=== PATIENT | female | born 1955 | race Caucasian/White ===

== ENCOUNTER 2021-08-10 03:01 | Emergency (ER) | payer MEDICARE ==
--- NOTE | 2021-08-10 03:09 | ERPHSYRPT ---
- History of Present Illness Time Seen by Provider: 08/10/21 03:09 Source: patient Exam Limitations: no limitations Physician History: This is a morbidly obese white female patient who presents with left flank pain that began yesterday morning at 10am. it was described as more of an ache. however, at approx 2am today, the pain suddenly worsened. she was tx for uti approx 3 months ago and pain is similar. pt has a h/o copd. pt does not have sig abd pain. she denies cp and her chronic sob is not different Timing/Duration: yesterday Activites at Onset: none Quality: aching, sharpness Onset Location: left flank Pain Radiation: none Severity of Pain-Max: moderate Severity of Pain-Current: moderate Sexual intercourse history: non-contributory Modifying Factors: Improves With: nothing Associated Symptoms: denies symptoms, No dysuria, No urinary frequency Allergies/Adverse Reactions: No Known Drug Allergies Allergy (Unverified 08/10/21 03:22) Home Medications: Albuterol 2.5 mg/3 ml Neb [Proventil 2.5 mg/3 ml Neb] 1 neb IH QID 08/10/21 [History] Travel Risk - International Travel Have you traveled outside of the country in past 3 weeks: No - Coronavirus Screening Are you exhibiting any of the following symptoms?: No Close contact with a COVID-19 positive Pt in past 14-21 Days: No - Review of Systems Constitutional: No Symptoms Eyes: No Symptoms Ears, Nose, & Throat: No Symptoms Respiratory: No Symptoms Cardiac: No Symptoms Genitourinary Symptoms: Flank Pain (left) Musculoskeletal: No Symptoms Skin: No Symptoms Neurological: No Symptoms Psychological: No Symptoms Endocrine: No Symptoms Hematologic/Lymphatic: No Symptoms Immunological/Allergic: No Symptoms All Other Systems: Reviewed and Negative - Past Medical History Pertinent Past Medical History: Yes - Past Surgical History Past Surgical History: Yes - Nursing Vital Signs Nursing Vital Signs: Initial Vital Signs Temperature 97.6 F 08/10/21 03:02 Pulse Rate 70 08/10/21 03:02 Respiratory Rate 24 08/10/21 03:02 Blood Pressure 222/109 08/10/21 03:02 O2 Sat by Pulse Oximetry 96 08/10/21 03:02 Pain Scale Pain Intensity 4 - Physical Exam General Appearance: mild distress, alert, anxiety, obese Eye Exam: PERRL/EOMI, eyes nml inspection Ears, Nose, Throat Exam: normal ENT inspection, moist mucous membranes Neck Exam: normal inspection, non-tender, supple, full range of motion Respiratory Exam: normal breath sounds, lungs clear, airway intact, No chest tenderness, No respiratory distress Cardiovascular Exam: regular rate/rhythm, normal heart sounds, normal peripheral pulses Gastrointestinal/Abdomen Exam: soft, normal bowel sounds, No tenderness Pelvic Exam: not done Rectal Exam: not done Back Exam: normal inspection, normal range of motion, CVA tenderness (left), No vertebral tenderness Extremity Exam: normal inspection, normal range of motion, pelvis stable Neurologic Exam: alert, oriented x 3, cooperative, 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 tested, normal mood/affect, nml cerebellar function, nml station & gait, sensation nml Skin Exam: normal color, warm, dry Lymphatic Exam: No adenopathy SpO2 Interpretation: normal O2 Delivery: Room Air - Course Nursing assessment & vital signs reviewed: Yes Ordered Tests: Active Orders 24 hr Category Date Time Status ABDOMEN AND PELVIS W/0 CONTRAS [CT] Stat Exams 08/10/21 03:32 Taken UA W/RFX CULTURE Stat Lab 08/10/21 03:15 Completed Medication Summary Discontinued Medications Generic Name Dose Route Start Last Admin Trade Name Tammie PRN Reason Stop Dose Admin Hydromorphone HCl 1 mg 08/10/21 03:31 08/10/21 03:38 Hydromorphone 1 Mg/1ml Inj 1 Mg/Ml Syringe IM 08/10/21 03:32 1 mg STAT ONE Administration Hydromorphone HCl Confirm 08/10/21 03:37 Hydromorphone 1 Mg/1ml Inj 1 Mg/Ml Syringe Administered 08/10/21 03:38 Dose 1 mg .ROUTE .STK-MED ONE Ondansetron HCl 4 mg 08/10/21 03:31 08/10/21 03:38 Zofran 4 Mg/Udtablet Orally Disintegrating PO 08/10/21 03:32 4 mg STAT ONE Administration Ondansetron HCl Confirm 08/10/21 03:37 Zofran 4 Mg/Udtablet Orally Disintegrating Administered 08/10/21 03:38 Dose 4 mg .ROUTE .STK-MED ONE Lab/Rad Data: Laboratory Results 08/10/21 Range/Units 03:15 Urinalys Dipstick Clnc MAIN LAB Urine Color YELLOW (YELLOW) Urine Appearance CLEAR (CLEAR) Urine pH 6.0 (5-6) Ur Specific [place] >=1.030 (1.005-1.025) POC Urine Protein Conf NEGATIVE (Negative) Urine Ketones NEGATIVE (NEGATIVE) Urine Nitrite NEGATIVE (NEGATIVE) Urine Bilirubin NEGATIVE (NEGATIVE) Urine Urobilinogen 0.2 (0-1) mg/dL Urine Leukocytes NEGATIVE (NEGATIVE) Urine WBC (Auto) 3-5 (0-5) /HPF Urine RBC (Auto) NONE (0-2) /HPF U Epithel Cells (Auto) RARE (FEW) /HPF Urine Bacteria (Auto) NONE (NEGATIVE) /HPF Urine RBC NEGATIVE (0-5) Leif/ul Urine Mucus (Auto) SLIGHT (NEGATIVE) /HPF Ur Culture Indicated? NO Urine Glucose NEGATIVE (NEGATIVE) mg/dL - Departure Departure Disposition: Home Clinical Impression: Lumbar back pain Condition: Stable Critical Care Time: No Additional Instructions: Take medications as prescribed. follow up with primary doctor for further management Prescriptions: Hydrocodone/APAP 5/325 [[place] 5/325 mg] 1 each PO Q8H PRN PRN #6 tablet MDD 3 PRN Reason: Pain Prednisone 10 mg [Deltasone 10 mg] 10 mg PO TID #12 tablet
[2021-08-10 03:19] LABS: Appearance CLEAR (CLEAR); Bilirubin NEGATIVE (NEGATIVE); Dipstick done @ ? MAIN LAB; Glucose NEGATIVE (NEGATIVE); Ketones NEGATIVE (NEGATIVE); Nitrite NEGATIVE (NEGATIVE); Protein,Urine Dip NEGATIVE (Negative); RBC NEGATIVE Ery/ul (0-5); Specific Gravity >=1.030 (1.005-1.025); Urobilinogen 0.2 mg/dL (0-1)
[2021-08-10 03:23] LABS: Epithelial Cells RARE /HPF (FEW); Mucus SLIGHT /HPF (NEGATIVE)
[2021-08-10 03:24] LABS: Urine Cultured Indicated? NO
[2021-08-10] MEDS ORDERED: Hydromorphone 1 mg/ml Injection IM ONE (03:31)
[2021-08-10] MEDS ORDERED: ZOFRAN ODT 4 MG PO ONE (03:31)
[2021-08-10] MEDS ORDERED: ZOFRAN ODT 4 MG ONE (03:37)
[2021-08-10] MEDS ORDERED: Hydromorphone 1 mg/ml Injection ONE (03:37)
[2021-08-10] MEDS ORDERED: DELTASONE 20 MG PO ONE (05:34)
[2021-08-10] MEDS ORDERED: DELTASONE 20 MG ONE (05:35)
[2021-08-10 05:39] VITALS: BP 170/91; PULSE 71; O2SAT 95
--- NOTE | 2021-08-10 09:10 | XRAY ---
Indication: Left flank pain. Multiple contiguous axial images obtained through the abdomen and pelvis without contrast. Comparison: None Lung bases demonstrates tiny left lower lobe calcified granuloma. No infiltrate or effusion. Heart not enlarged. Noncontrasted stomach and bowel loops appear nonobstructed with normal appendix. Minimal scattered descending and sigmoid diverticulosis without diverticulitis. Previous hysterectomy. No free fluid/air. Left kidney demonstrates 2 nonobstructing punctate calculi. Mild diffuse fatty liver. Remaining liver, gallbladder, pancreas, spleen, adrenal glands, kidneys, ureters, and bladder are unremarkable for noncontrast exam. Minimal scattered aortoiliac calcifications without AAA. Osseous structures intact with mild osteopenia, minimal/mild degenerative changes throughout the spine, and minimal dextroscoliosis. Impression: 1. Nonobstructing left renal micro-calculi, fatty liver, colonic diverticulosis, and chronic bony findings. 2. Remaining CT abdomen/pelvis without contrast exam is negative.
== END 2021-08-10 05:43 | disposition home or self-care (01) ==
LOC: ED 03:01
DX: M54.50 Low back pain, unspecified (principal); R10.9 Unspecified abdominal pain; J44.9 Chronic obstructive pulmonary disease, unspecified; Z79.891 Long term (current) use of opiate analgesic; Z79.52 Long term (current) use of systemic steroids
CPT/HCPCS: 74176; 81015; 96372; 99284; J1170; Q0162; A9270-GY

== ENCOUNTER 2022-11-28 19:20 | Observation (INO) | payer MEDICARE ==
[2022-11-28] MEDS ORDERED: TORAdol 30 mg Injection IV ONE (19:49)
[2022-11-28] MEDS ORDERED: TYLENOL 325 MG ONE (19:52)
[2022-11-28] MEDS ORDERED: TORAdol 30 mg Injection ONE (19:52)
[2022-11-28] MEDS ORDERED: TYLENOL 325 MG PO STA (19:53)
[2022-11-28] MEDS: Sodium Chloride 0.9% 1000 ML 1,000 ML IV SCH (19:54)
[2022-11-28 20:11] LABS: Hematocrit 43.6 % (35-47); Hemoglobin 14.2 g/dL (12.0-16.0); Mean Cell Volume 86.3 fL (78-100); Mean Corpuscular Hemoglobin 28.1 pg (26-32); Mean Corpuscular Hgb Concent. 32.6 g/dL (32-36); Mean Platelet Volume 10.3 fL (7.5-11.0); Platelet Count 154 x10^3/uL (150-450); Red Blood Count 5.05 x10^6/uL (4.1-5.4); Red Cell Distribution Width 14.2 % (11.5-14.0); White Blood Count 9.2 x10^3/uL (4.0-10.5)
[2022-11-28 20:28] LABS: ADD URINE CULTURE? YES (NO); Appearance Turbid (Clear); Bacteria Many /HPF (None Seen); Bilirubin Small (Negative); Blood Moderate (Negative); Epithelial Cells Rare /HPF (None Seen); Glucose, Urine Negative (Negative); Ketones Negative (Negative); Leukocyte Esterase Large (Negative); Nitrite Positive (Negative); Protein,Urine Dip 300 (Negative); RBC 21-50 /HPF (0-5); Specific Gravity 1.015 (1.005-1.030); WBC >100 /HPF (0-5)
[2022-11-28 20:30] LABS: BILIRUBIN,TOTAL 1.7 mg/dL (0.2-1.3); Calcium 8.7 mg/dL (8.4-10.2); Creatinine 1 1.03 mg/dL (0.52-1.04); EST GLOMERULAR FILTRATION RATE 56.6 ML/MIN; Potassium 3.7 mmol/L (3.5-5.1); Total Protein 7.1 g/dL (6.3-8.2)
[2022-11-28] MEDS ORDERED: ROCEPHIN 1 Gm-D5w 50 ml Bag** 1 G/50 ML IVPB IV STA (21:23)
[2022-11-28] MEDS ORDERED: ROCEPHIN 1 Gm-D5w 50 ml Bag** 1 G/50 ML IVPB IV ONE (21:25)
--- NOTE | 2022-11-28 21:32 | ERPHSYRPT ---
- History of Present Illness Time Seen by Provider: 11/28/22 19:45 Source: patient Exam Limitations: no limitations Patient Subjective Stated Complaint: pt reports that on 11/25/22 she woke up with a headache and nausea that persisted unchanged until last night when she vomited once that she states was water and medication. she reports that this morning she vomited water again and started having bilat lower abd pain that is intermittent, rated 9/10, and described as throbbing. she continues to have a frontal BOYLE that is also on the top of her head. states that she continues to be nauseated but hasn't thrown up again since this morning. Triage Nursing Assessment: pt brought to room 8 via wheelchair after standing on scales for weight acquisition and to bathroom for urine sample independently with slow steady gait. pt is alert and oriented times three, resp even and unlabored, able to move all extremities, and able to speak in complete se ntences. abd soft, tender to palpation in bilat lower quadrants, obese, with positive bowel sounds in all quadrants. denies sob, difficulty breathing, cp, vomiting, diarrhea, difficulty with urination or bowel elimination. states that she has been extremely thristy all day. denies having taken her temperature but has felt like she had a fever. Physician History: Patient is a 67-year-old female presents to our ED for evaluation of nausea and a headache. Patient's been experiencing cold chills at night. Patient vomited yesterday. Patient has suprapubic tenderness rated 9 out of 10. No trauma no fever no significant back pain. Symptoms are mild to moderate in intensity. No specific worsening improving factors. Patient headache is mostly frontal. No associated neurologic manifestations. Patient voices no other complaints or concerns at this time. Portions of this note were created with voice recognition technology. There may be grammatical, spelling, punctuation or sound alike errors Timing/Duration: yesterday Severity: moderate Modifying Factors: Improves With: nothing Associated Symptoms: denies symptoms Allergies/Adverse Reactions: No Known Drug Allergies Allergy (Verified 11/28/22 19:30) Home Medications: Albuterol 2.5 mg/3 ml Neb [Proventil 2.5 mg/3 ml Neb] 1 neb IH QID 07/16 11/04 [History] Tamsulosin HCl 0.4 mg [Flomax 0.4 MG] 0.4 mg PO DAILY 11/15/21 [History] Famotidine [Pepcid] 20 mg PO DAILY 11/28/22 [History] Naproxen Sodium [Aleve] 220 mg PO DAILY PRN 11/28/22 [History] Hx Tetanus, Diphtheria Vaccination/Date Given: No Hx Influenza Vaccination/Date Given: No Hx Pneumococcal Vaccination/Date Given: No Immunizations Up to Date: No Travel Risk - International Travel Have you traveled outside of the country in past 3 weeks: No - Coronavirus Screening Are you exhibiting any of the following symptoms?: No Close contact with a COVID-19 positive Pt in past 14-21 Days: No - Vaccine Status Have you recieved a Covid-19 vaccination: Yes Sec Reporting Consultant: Moderna - Vaccination Dates Date of 2cond Vaccination (if applicable): 06/23/20 - Review of Systems Constitutional: No Symptoms, No Fever, No Chills Eyes: No Symptoms Ears, Nose, & Throat: No Symptoms Respiratory: No Symptoms, No Cough, No Dyspnea Cardiac: No Symptoms, No Chest Pain, No Edema, No Syncope Abdominal/Gastrointestinal: No Symptoms, No Abdominal Pain, No Nausea, No Vomiting, No Diarrhea Genitourinary Symptoms: No Symptoms, No Dysuria Musculoskeletal: No Symptoms, No Back Pain, No Neck Pain Skin: No Symptoms, No Rash Neurological: No Symptoms, No Dizziness, No Focal Weakness, No Sensory Changes Psychological: No Symptoms Endocrine: No Symptoms Hematologic/Lymphatic: No Symptoms Immunological/Allergic: No Symptoms All Other Systems: Reviewed and Negative - Past Medical History Pertinent Past Medical History: Yes Neurological History: No Pertinent History ENT History: No Pertinent History Cardiac History: Hypertension Respiratory History: COPD Endocrine Medical History: No Pertinent History Musculoskeletal History: No Pertinent History GI Medical History: No Pertinent History History: No Pertinent History Psycho-Social History: No Pertinent History Female Reproductive Disorders: Uterine Cancer Other Medical History: kidney stones - Past Surgical History Past Surgical History: Yes Neuro Surgical History: No Pertinent History Cardiac: No Pertinent History Respiratory: No Pertinent History Gastrointestinal: No Pertinent History Genitourinary: No Pertinent History Musculoskeletal: No Pertinent History Female Surgical History: Hysterectomy - Social History Smoking Status: Former smoker How long have you smoked: age 15 Exposure to second hand smoke: Yes Drug Use: none Patient Lives Alone: No - Nursing Vital Signs Nursing Vital Signs: Initial Vital Signs Pulse Rate 95 H 11/28/22 19:33 Respiratory Rate 20 11/28/22 19:33 Blood Pressure 195/86 11/28/22 19:33 O2 Sat by Pulse Oximetry 96 11/28/22 19:33 Pain Scale Pain Intensity 9 - Physical Exam General Appearance: no apparent distress, alert Eye Exam: PERRL/EOMI, eyes nml inspection Ears, Nose, Throat Exam: normal ENT inspection, TMs normal, pharynx normal, moist mucous membranes Neck Exam: normal inspection, non-tender, supple, full range of motion Respiratory Exam: normal breath sounds, lungs clear, airway intact, No respiratory distress Cardiovascular Exam: regular rate/rhythm, normal heart sounds, normal peripheral pulses Gastrointestinal/Abdomen Exam: soft, normal bowel sounds, other (Significant sup rapubic tenderness. Left-sided costovertebral angle tenderness), No tenderness, No mass Back Exam: normal inspection, normal range of motion, No CVA tenderness, No vertebral tenderness Extremity Exam: normal inspection, normal range of motion, pelvis stable Neurologic Exam: alert, oriented x 3, cooperative, normal mood/affect, nml cerebellar function, nml station & gait, sensation nml, No motor deficits Skin Exam: normal color, warm, dry, No rash Lymphatic Exam: No adenopathy SpO2 Interpretation: normal SpO2: 96 O2 Delivery: Room Air - Course Nursing assessment & vital signs reviewed: Yes - CT Exams Abdomen/Pelvis CT Interpretation: Tele-radiologist Report (Compared to 08/10/2021 again nonobs tructing bilateral renal micro calculi fatty liver colonic diverticulosis. No new acute findings) Ordered Tests: Active Orders 24 hr Category Date Time Status IV Insertion STAT Care 11/28/22 19:49 Active ABDOMEN AND PELVIS W/0 CONTRAS [CT] Stat Exams 11/28/22 19:49 Taken BLOOD CULTURE Stat Lab 11/28/22 20:45 Received CBC W DIFF Stat Lab 11/28/22 20:06 Completed CMP Stat Lab 11/28/22 20:06 Completed CULTURE,URINE Stat Lab 11/28/22 19:49 Received Manual Differential NC Stat Lab 11/28/22 20:06 Completed UA W/RFX UR CULTURE Stat Lab 11/28/22 19:49 Completed Transfer Order Routine Transfer 11/28/22 Ordered Medication Summary Generic Name Dose Route Start Last Admin Trade Name Freq PRN Reason Stop Dose Admin Sodium Chloride 1,000 mls @ 100 mls/hr 11/28/22 20:00 11/28/22 19:54 Sodium Chloride 0.9% 1000 Ml IV 12/28/22 19:59 100 mls/hr .Q10H KRISTIN Administration Discontinued Medications Generic Name Dose Route Start Last Admin Trade Name Tammie PRN Reason Stop Dose Admin Acetaminophen 975 mg 11/28/22 19:53 11/28/22 19:54 Acetaminophen 325 Mg Tablet PO 11/28/22 19:54 975 mg STAT STA Administration Acetaminophen Confirm 11/28/22 19:52 Acetaminophen 325 Mg Tablet Administered 11/28/22 19:53 Dose 975 mg .ROUTE .STK-MED ONE Ceftriaxone Sodium/Dextrose 1 g in 50 mls @ 100 mls/hr 11/28/22 21:23 11/28/22 21:27 Rocephin 1 Gm-D5w 50 Ml Bag IV 11/28/22 21:52 100 mls/hr STAT STA 100 mls/hr Administration Ceftriaxone Sodium/Dextrose Confirm 11/28/22 21:25 Rocephin 1 Gm-D5w 50 Ml Bag Administered 11/28/22 21:26 Dose 1 g in 50 mls @ ud IV .STK-MED ONE Ketorolac Tromethamine 30 mg 11/28/22 19:49 11/28/22 19:54 Ketorolac Tromethamine 30 Mg/Ml Inj IV 11/28/22 19:50 30 mg STAT ONE Administration Ketorolac Tromethamine Confirm 11/28/22 19:52 Ketorolac Tromethamine 30 Mg/Ml Inj Administered 11/28/22 19:53 Dose 30 mg .ROUTE .STK-MED ONE Lab/Rad Data: Laboratory Result Diagrams 11/28/22 20:06 11/28/22 20:06 Laboratory Results 11/28/22 11/28/22 11/28/22 Range/Units 20:06 20:06 19:49 WBC 9.2 (4.0-10.5) x10^3/uL RBC 5.05 (4.1-5.4) x10^6/uL Hgb 14.2 (12.0-16.0) g/dL Hct 43.6 (35-47) % MCV 86.3 (78-100) fL MCH 28.1 (26-32) pg MCHC 32.6 (32-36) g/dL RDW 14.2 H (11.5-14.0) % Plt Count 154 (150-450) x10^3/uL MPV 10.3 (7.5-11.0) fL Segmented Neutrophils 89 H (36.0-66.0) % Lymphocytes (Manual) 5 L (24-44) % Monocytes (Manual) 6 (0.0-12.0) % Platelet Estimate NORMAL (NORMAL) RBC Morphology NORMAL Sodium 133 L (137-145) mmol/L Potassium 3.7 (3.5-5.1) mmol/L Chloride 102 (98-107) mmol/L Carbon Dioxide 21 L (22-30) mmol/L Anion Gap 14.0 (5-15) MEQ/L BUN 21 H (7-17) mg/dL Creatinine 1.03 (0.52-1.04) mg/dL Estimated GFR 56.6 ML/MIN Glucose 151 H (74-106) mg/dL Calcium 8.7 (8.4-10.2) mg/dL Total Bilirubin 1.70 H (0.2-1.3) mg/dL AST 67 H (14-36) U/L ALT 49 H (0-35) U/L Alkaline Phosphatase 156 H (38-126) U/L Serum Total Protein 7.1 (6.3-8.2) g/dL Albumin 4.0 (3.5-5.0) g/dL Urine Color Dark Yellow A (Yellow) Urine Appearance Turbid A (Clear) Urine pH 6.0 (4.6-8.0) Ur Specific [place] 1.015 (1.005-1.030) Urine Protein 300 A (Negative) Urine Glucose (UA) Negative (Negative) mg/dL Urine Ketones Negative (Negative) Urine Blood Moderate A (Negative) Urine Nitrite Positive A (Negative) Urine Bilirubin Small A (Negative) Urine Urobilinogen 2.0 A (0.2) mg/dL Ur Leukocyte Esterase Large A (Negative) U Hyaline Cast (Auto) 3-5 A (0-2) /LPF Urine Microscopic RBC 21-50 A (0-5) /HPF Urine Microscopic WBC >100 A (0-5) /HPF Ur Epithelial Cells Rare (None Seen) /HPF Urine Bacteria Many A (None Seen) /HPF Urine Culture Reflexed YES (NO) - Progress Progress: improved Progress Note: Patient 67-year-old female presents to our ED for evaluation of fever and suprapubic pain. Tenderness to the suprapubic area observed on physical exam. Mild left CV a tenderness. CT abdomen pelvis testing unremarkable. CBC unrem arkable. CMP nonremarkable. Urinalysis reveals a significant urinary tract infection. In light of this systemic manifestation coupled with a significant urinary tract infection patient will be admitted for pyelonephritis. Patient received Toradol Tylenol Rocephin and normal saline. Plan of care discussed with patient. She agrees to admission [facility]. Discussed with hospitalist Dr. Talamantes 10:05 PM who excepts admission to observation. Complexity of problems addressed is moderate acute complicated Complexity of data reviewed is extensive. Test ordered for test reviewed. Clinical correlation made between findings and history and physical examination. Plan of care and management discussed with Follows to except admission to observation. Risk of complication and or risk morbidity/mortality of patient management is high. Patient requires hospitalization for further evaluation and treatment of pyelonephritis Plan of care discussed with patient. She agrees to admission [facility] for further evaluation and treatment. Vital stable. Plan of care established for shared decision making. Time spent admit patient approximately 15 minutes. Portions of this note were created with voice recognition technology. There may be grammatical, spelling, punctuation or sound alike errors 11/28/22 22:27 Counseled pt/family regarding: lab results, diagnosis, need for follow-up, rad results - Departure Departure Disposition: Home Clinical Impression: Urinary tract infection, Nephrolithiasis, Fatty liver, Diverticulosis Condition: Stable Critical Care Time: No Referrals: DOCTOR,NO FAMILY [Primary Care Provider] - Follow up/PCP as directed Additional Instructions: Discharge/Care Plan [facility] was seen on 11/28/22 in the Emergency Room. The patient was counseled regarding Diagnosis,Lab results, Imaging studies, need for follow up and when to return to the Emergency Room. Prescriptions given: Discharge Note I have spoken with the patient and/or caregivers. I have explained the patient's condition, diagnosis and treatment plan based on the information available to me at this time. I have answered the patient's and/or caregiver's questions and addressed any concerns. The patient and/or caregivers have as good understanding of the patient's diagnosis, condition and treatment plan as can be expected at this point. The vital signs have been stable. The patient's condition is stable and appropriate for discharge from the emergency department. The patient will pursue further outpatient evaluation with the primary care physician or other designated or consulting physician as outlined in the dis charge instructions. The patient and/or caregivers are agreeable to this plan of care and follow-up instructions have been explained in detail. The patient and/or caregivers have received these instruction. The patient/and or caregivers are aware that any significant change in condition or worsening of symptoms should prompt an immediate return to this or the closest emergency department or call 911.
[2022-11-28 21:58] LABS: Lymphocytes 5 % (24-44); Monocyte 6 % (0.0-12.0); Neutrophils 89 % (36.0-66.0); Platelet Estimate NORMAL (NORMAL); Total Cells Counted 100
[2022-11-29] MEDS ORDERED: MILK OF MAGNESIA 30 ML PO PRN (02:03)
[2022-11-29] MEDS ORDERED: FEVERALL 650 MG PR PRN (02:03)
[2022-11-29] MEDS ORDERED: Docusate Sodium 100 MG PO PRN (02:03)
--- NOTE | 2022-11-29 02:11 | PCM.HP ---
History of Present Illness - Chief Complaint Chief Complaint: Pyelonephritis Date: 11/29/22 History of Present Illness: This is a 67-year-old female admitted for pyelonephritis. She has past medical history of COPD, uterine cancer. She presented to the ED this evening for evaluation of abdominal pain and headache. On arrival she was febrile 102, heart rate 95, blood pressure 195/86. Labs are significant for WBC 9.2, hemoglobin 14, platelets 154, sodium 133, serum bicarb 21, creatinine 1.0, T. bili 1.7, AST 67, ALT 49, alk phos 156, UA with large leukocyte esterase, blood, nitrite, WBCs, many bacteria. CT abdomen pelvis was obtained official read is still pending but overnight read negative for acute abnormalities. In the ED she received Tylenol, ceftriaxone, Toradol, IV fluids. - Review of Systems Eyes: No Symptoms Ears, Nose, & Throat: No Symptoms Respiratory: No Symptoms Cardiac: No Symptoms Abdominal/Gastrointestinal: Nausea, Vomiting Genitourinary Symptoms: Frequency Musculoskeletal: Back Pain Skin: No Symptoms Neurological: Headache Psychological: No Symptoms Endocrine: No Symptoms Medications & Allergies Home Medications: Home Medication List Albuterol 2.5 mg/3 ml Neb [Proventil 2.5 mg/3 ml Neb] 1 neb IH QID 08/10/21 [History Confirmed 11/28/22] Famotidine [Pepcid] 20 mg PO DAILY 11/28/22 [History Confirmed 11/28/22] Fluticasone/Umeclidin/Vilanter [Trelegy Ellipta 100-62.5-25] 1 inh PO DAILY 11/28/22 [History Confirmed 11/28/22] Naproxen Sodium [Aleve] 220 mg PO DAILY PRN 11/28/22 [History Confirmed 11/28/22] Allergies/Adverse Reactions: Allergies Allergy/AdvReac Type Severity Reaction Status Date / Time No Known Drug Allergies Allergy Verified 11/28/22 19:30 - Past Medical History Past Medical History: Yes Neurological History: No Pertinent History ENT History: No Pertinent History Cardiac History: Hypertension Respiratory History: COPD Endocrine Medical History: No Pertinent History Musculoskelatal History: Osteoarthritis GI Medical History: No Pertinent History History: No Pertinent History Pyscho-Social History: No Pertinent History Reproductive Disorders: Uterine Cancer Comment: kidney stones - Female History Are you now?: No - Past Surgical History Past Surgical History: Yes Neuro Surgical History: No Pertinent History Cardiac History: No Pertinent History Respiratory Surgery: No Pertinent History GI Surgical History: No Pertinent History Genitourinary Surgical Hx: No Pertinent History Musculskeletal Surgical Hx: No Pertinent History Female Surgical History: Hysterectomy - Social History Smoking Status: Former smoker How long have you smoked: age 15 Exposure to second hand smoke: Yes Alcohol: Rarely Drug Use: none - Physical Exam Vital Signs: Vital Signs - 24 hr Temp Pulse Resp BP BP Pulse Ox 11/28/22 23:56 98 11/28/22 23:54 74 18 98 11/28/22 23:03 98.6 F 77 28 H 144/65 94 L 11/28/22 22:30 96 11/28/22 22:30 88 175/111 96 11/28/22 22:00 173/81 96 11/28/22 21:30 151/78 95 11/28/22 21:00 83 18 155/70 96 11/28/22 20:30 79 20 131/57 95 11/28/22 20:00 81 18 128/106 96 11/28/22 19:55 94 H 18 178/91 97 11/28/22 19:35 102 F 95 H 20 195/86 98 11/28/22 19:33 95 H 20 195/86 96 General Appearance: no apparent distress Neurologic Exam: alert, oriented x 3 Eye Exam: PERRL/EOMI Ears, Nose, Throat Exam: normal ENT inspection Neck Exam: normal inspection Respiratory Exam: normal breath sounds Cardiovascular Exam: regular rate/rhythm Gastrointestinal/Abdomen Exam: soft, normal bowel sounds Back Exam: normal inspection Extremity Exam: normal inspection Skin Exam: normal color Results - Labs Lab/Micro Results: Lab Results-Last 24 Hours 11/28/22 11/28/22 11/28/22 Range/Units 19:49 20:06 20:06 WBC 9.2 (4.0-10.5) x10^3/uL RBC 5.05 (4.1-5.4) x10^6/uL Hgb 14.2 (12.0-16.0) g/dL Hct 43.6 (35-47) % MCV 86.3 (78-100) fL MCH 28.1 (26-32) pg MCHC 32.6 (32-36) g/dL RDW 14.2 H (11.5-14.0) % Plt Count 154 (150-450) x10^3/uL MPV 10.3 (7.5-11.0) fL Segmented Neutrophils 89 H (36.0-66.0) % Lymphocytes (Manual) 5 L (24-44) % Monocytes (Manual) 6 (0.0-12.0) % Platelet Estimate NORMAL (NORMAL) RBC Morphology NORMAL Sodium 133 L (137-145) mmol/L Potassium 3.7 (3.5-5.1) mmol/L Chloride 102 (98-107) mmol/L Carbon Dioxide 21 L (22-30) mmol/L Anion Gap 14.0 (5-15) MEQ/L BUN 21 H (7-17) mg/dL Creatinine 1.03 (0.52-1.04) mg/dL Estimated GFR 56.6 ML/MIN Glucose 151 H (74-106) mg/dL Calcium 8.7 (8.4-10.2) mg/dL Total Bilirubin 1.70 H (0.2-1.3) mg/dL AST 67 H (14-36) U/L ALT 49 H (0-35) U/L Alkaline Phosphatase 156 H (38-126) U/L Serum Total Protein 7.1 (6.3-8.2) g/dL Albumin 4.0 (3.5-5.0) g/dL Urine Color Dark Yellow A (Yellow) Urine Appearance Turbid A (Clear) Urine pH 6.0 (4.6-8.0) Ur Specific [place] 1.015 (1.005-1.030) Urine Protein 300 A (Negative) Urine Glucose (UA) Negative (Negative) mg/dL Urine Ketones Negative (Negative) Urine Blood Moderate A (Negative) Urine Nitrite Positive A (Negative) Urine Bilirubin Small A (Negative) Urine Urobilinogen 2.0 A (0.2) mg/dL Ur Leukocyte Esterase Large A (Negative) U Hyaline Cast (Auto) 3-5 A (0-2) /LPF Urine Microscopic RBC 21-50 A (0-5) /HPF Urine Microscopic WBC >100 A (0-5) /HPF Ur Epithelial Cells Rare (None Seen) /HPF Urine Bacteria Many A (None Seen) /HPF Urine Culture Reflexed YES (NO) - Radiology Impressions Radiology Exams & Impressions: Radiology Procedures Category Date Time Status ABDOMEN AND PELVIS W/0 CONTRAS [CT] Stat Exams 11/28/22 19:49 Taken - Other Procedures and Tests Respiratory Therapy 11/28/22 23:12 Respiratory Therapy Assessment DAILY Assessment/Plan (1) Urinary tract infection Current Visit: Yes Status: Acute Assessment & Plan: ASSESSMENT #Sepsis #Pyelonephritis #History of COPD #Headache #Transaminitis PLAN -IV fluids -Pain control -Ceftriaxone -Blood, urine cultures -Resume home medications for chronic issues -Follow up repeat LFTs -Follow up final CT abd/pelvis final read Entire encounter performed via telemedicine Code(s): N39.0 - URINARY TRACT INFECTION, SITE NOT SPECIFIED Telemedicine Encounter - Telemedicine Encounter Telemedicine Encounter: The entirety of this encounter was performed via Telemedicine"
[2022-11-29] MEDS: ULTRAM 50 MG PO PRN ×3 (02:23→19:47)
[2022-11-29 05:22] LABS: Absolute Neutrophil Ct (ANC) 7.07 x10^3/uL (1.4-6.9); BASOPHIL % 0.2 % (0.0-0.4); Basophil (Absolute #) 0.02 x10^3/uL (0-0.4); Eosinophil % 0.1 % (0.00-5.0); Eosinophil (Absolute #) 0.01 x10^3/uL (0-0.5); Hematocrit 40.9 % (35-47); Hemoglobin 13.1 g/dL (12.0-16.0); IMMATURE GRAN # 0.05 x10^3u/L (0.00-0.03); IMMATURE GRAN % 0.6 % (0.00-0.4); Lymphocyte (Absolute #) 0.51 x10^3/uL (1.0-4.6); Mean Corpuscular Hemoglobin 27.9 pg (26-32); Mean Platelet Volume 9.8 fL (7.5-11.0); Monocyte (Absolute #) 0.83 x10^3/uL (0.0-1.3); Monocytes % 9.8 % (0.0-12.0); Neutrophil % 83.3 % (36.0-66.0); Platelet Count 142 x10^3/uL (150-450); Red Cell Distribution Width 14.6 % (11.5-14.0); White Blood Count 8.5 x10^3/uL (4.0-10.5)
[2022-11-29 05:23] LABS: ALBUMIN 3.6 g/dL (3.5-5.0); ANION GAP 10.1 MEQ/L (5-15); BILIRUBIN,TOTAL 1.5 mg/dL (0.2-1.3); Calcium 8.5 mg/dL (8.4-10.2); Creatinine 1 1.19 mg/dL (0.52-1.04); EST GLOMERULAR FILTRATION RATE 47.9 ML/MIN; Potassium 3.3 mmol/L (3.5-5.1); Total Protein 6.6 g/dL (6.3-8.2)
[2022-11-29] MEDS ORDERED: VENTOLIN COMMON CANISTER IH SCH (07:00)
[2022-11-29 07:29] LABS: Slide Review 1 YES
[2022-11-29] MEDS: Advair Hfa 115/21 Common canister IH SCH ×2 (07:30→18:17)
[2022-11-29] MEDS ORDERED: PROVENTIL 2.5 MG/3 ML NEB IH ONE (07:33)
[2022-11-29] MEDS: PROVENTIL 2.5 MG/3 ML NEB IH SCH ×4 (07:39→18:17)
[2022-11-29] MEDS: Spiriva 18 Mcg/Cap Inhaler IH SCH (07:40)
[2022-11-29] MEDS: Zofran 4 MG/2 ML VIAL IV PRN ×2 (08:13→15:53)
[2022-11-29] MEDS: Pepcid 20 MG PO SCH (09:01)
[2022-11-29] MEDS: ENOXAPARIN SODIUM SQ SCH (09:01)
[2022-11-29] MEDS: Klor Con PO SCH ×4 (09:01→15:53)
--- NOTE | 2022-11-29 09:03 | XRAY ---
Indication: Pain. Multiple contiguous axial images obtained through the abdomen and pelvis without contrast. Comparison: August 10, 2021 Lung bases demonstrates stable tiny left lower lobe calcified granuloma. Heart not enlarged. Noncontrasted stomach and bowel loops nonobstructed again with normal appendix. Stable minimal descending/sigmoid diverticulosis without diverticulitis and hysterectomy. Nonobstructing punctate calculus in each kidney. Liver again demonstrates mild diffuse fatty attenuation. No free fluid/air. Main liver, gallbladder, pancreas, spleen, adrenal glands, kidneys, ureters, and bladder are unremarkable for noncontrast exam. There remains minimal aortoiliac calcifications without AAA. Osseous structures intact again with osteopenia, mild/moderate degenerative changes throughout the thoracolumbar spine, and minimal dextroscoliosis. Impression: 1. Again chronic findings including colonic diverticulosis, fatty liver, nonobstructing bilateral renal micro-calculus, chronic bony findings, and arteriosclerotic disease. 2. Remaining CT abdomen/pelvis without contrast exam continues to be negative.
[2022-11-29] MEDS ORDERED: Hydromorphone 1 mg/ml Injection IV PRN (11:07)
[2022-11-29] MEDS ORDERED: TYLENOL 325 MG PO PRN (16:52)
[2022-11-29] MEDS ORDERED: ROCEPHIN 1 Gm-D5w 50 ml Bag** 1 G/50 ML IVPB IV SCH (22:00)
[2022-11-29] MEDS ORDERED: Sodium Chloride 0.9% 1000 ML 1,000 ML ONE (23:30)
[2022-11-29] MEDS: Sodium Chloride 0.9% 1000 ML 1,000 ML IV SCH (23:32)
[2022-11-30 04:44] LABS: ANION GAP 10.9 MEQ/L (5-15); BLOOD UREA NITROGEN 17 mg/dL (7-17); CHLORIDE 104 mmol/L (98-107); Calcium 8.6 mg/dL (8.4-10.2); Carbon Dioxide 24 mmol/L (22-30); Creatinine 1 0.94 mg/dL (0.52-1.04); EST GLOMERULAR FILTRATION RATE > 60.0 ML/MIN; Glucose 104 mg/dL (74-106); Potassium 3.8 mmol/L (3.5-5.1); SODIUM 136 mmol/L (137-145)
[2022-11-30] MEDS: Spiriva 18 Mcg/Cap Inhaler IH SCH (06:35)
[2022-11-30] MEDS: Advair Hfa 115/21 Common canister IH SCH (06:35)
[2022-11-30] MEDS: PROVENTIL 2.5 MG/3 ML NEB IH SCH ×2 (06:35→10:27)
[2022-11-30 08:03] LABS: Hematocrit 38.4 % (35-47); Hemoglobin 12.3 g/dL (12.0-16.0); Mean Cell Volume 87.3 fL (78-100); Mean Platelet Volume 9.5 fL (7.5-11.0); Platelet Count 148 x10^3/uL (150-450); Red Cell Distribution Width 14.3 % (11.5-14.0); White Blood Count 6.7 x10^3/uL (4.0-10.5)
[2022-11-30] MEDS: ENOXAPARIN SODIUM SQ SCH (09:10)
[2022-11-30] MEDS: Pepcid 20 MG PO SCH (09:10)
[2022-11-30 12:00] VITALS: BP 166/72; PULSE 68; RESP 20; TEMP 97.1; O2SAT 96
--- NOTE | 2022-11-30 13:45 | PCM.DS ---
Discharge Summary Date of Admission: 11/28/22 22:56 Date of Discharge: 11/30/22 Admitting Physician: CJ MCKEON MD Primary Care Provider: MILO MENDOZA Allergies Allergies No Known Drug Allergies Allergy (Verified 11/28/22 19:30) Hospital Summary - Hospital Course Hospital Course: This is a 67-year-old female admitted for pyelonephritis. She has past medical history of COPD, uterine cancer. She presented to the ED for evaluation of abdominal pain and headache. UA with large leukocyte esterase, blood, nitrite, WBCs, many bacteria. CT abdomen pelvis was negative for acute abnormalities. She has been receiving Tylenol, ceftriaxone, Toradol, IV fluids. UC + for ecoli and will send home on Bactrim. She is wanting to go home today and feels much better. - Vitals & Intake/Output Vital Signs: Vital Signs Temperature 97.1 F 11/30/22 11:55 Pulse Rate 68 11/30/22 11:55 Respiratory Rate 20 11/30/22 11:55 Blood Pressure 166/72 11/30/22 11:55 O2 Sat by Pulse Oximetry 96 11/30/22 11:55 Intake & Output: Intake & Output 11/28/22 11/29/22 11/30/22 12/01/22 11:59 11:59 11:59 11:59 Intake Total 1124 3826 240 Output Total 225 1425 200 Balance 899 2401 40 Weight 127.9 kg - Lab Result Diagrams: 11/30/22 08:02 11/30/22 04:25 Lab Results-Last 24 Hrs: Lab Results-Last 24 Hours 11/29/22 11/30/22 11/30/22 Range/Units 16:23 04:25 08:02 WBC 6.7 (4.0-10.5) x10^3/uL RBC 4.40 (4.1-5.4) x10^6/uL Hgb 12.3 (12.0-16.0) g/dL Hct 38.4 (35-47) % MCV 87.3 (78-100) fL MCH 28.0 (26-32) pg MCHC 32.0 (32-36) g/dL RDW 14.3 H (11.5-14.0) % Plt Count 148 L (150-450) x10^3/uL MPV 9.5 (7.5-11.0) fL Sodium 136 L (137-145) mmol/L Potassium 3.7 3.8 (3.5-5.1) mmol/L Chloride 104 (98-107) mmol/L Carbon Dioxide 24 (22-30) mmol/L Anion Gap 10.9 (5-15) MEQ/L BUN 17 (7-17) mg/dL Creatinine 0.94 (0.52-1.04) mg/dL Estimated GFR > 60.0 ML/MIN Glucose 104 (74-106) mg/dL Calcium 8.6 (8.4-10.2) mg/dL Magnesium 2.0 (1.6-2.3) mg/dL Micro Results-Entire Visit: Microbiology 11/28/22 20:45 Blood Culture - Preliminary Blood 11/28/22 20:06 Blood Culture - Preliminary Blood 11/28/22 19:49 Urine Culture - Final Clean Catch Midstream Escherichia Coli - Radiology Exams Ordered Rad Exams-Entire Visit: Radiology Procedures Category Date Time Status ABDOMEN AND PELVIS W/0 CONTRAS [CT] Stat Exams 11/28/22 19:49 Completed - Procedures and Test Procedures and Tests throughout Hospitalization: Therapy Orders & Screens 11/28/22 23:12 Respiratory Therapy Assessment DAILY Comment: Diagnosis: Pyelonephritis Discharge Exam General Appearance: no apparent distress, alert Neurologic Exam: alert, oriented x 3, cooperative, normal mood/affect, nml cerebellar function, sensation nml, No motor deficits Eye Exam: PERRL, EOMI, eyes nml inspection Ears, Nose, Throat Exam: normal ENT inspection, pharynx normal, moist mucous membranes Neck Exam: normal inspection, non-tender, supple, full range of motion Respiratory Exam: normal breath sounds, lungs clear, No respiratory distress Cardiovascular Exam: regular rate/rhythm, normal heart sounds Gastrointestinal/Abdomen Exam: soft, No tenderness, No mass Pelvic Exam: deferred Rectal Exam: deferred Back Exam: normal inspection, normal range of motion, No CVA tenderness, No vertebral tenderness Extremity Exam: normal inspection, normal range of motion Skin Exam: normal color, warm, dry Final Diagnosis/Problem List - Final Discharge Diagnosis/Problem (1) History of COPD Current Visit: Yes Status: Acute Assessment & Plan: - stable - cont home meds Code(s): Z87.09 - PERSONAL HISTORY OF OTHER DISEASES OF THE RESPIRATORY SYSTEM (2) Pyelonephritis Current Visit: Yes Status: Acute Assessment & Plan: -IV fluids -Pain control -Ceftriaxone Code(s): N12 - TUBULO-INTERSTITIAL NEPHRITIS, NOT SPCF ACUTE OR CHRONIC (3) Headache Current Visit: Yes Status: Acute Assessment & Plan: - resolved Code(s): R51.9 - HEADACHE, UNSPECIFIED (4) Urinary tract infection Current Visit: Yes Status: Acute Assessment & Plan: -IV fluids -Pain control -Ceftriaxone - UC + for e-coli Code(s): N39.0 - URINARY TRACT INFECTION, SITE NOT SPECIFIED - Discharge Disposition: Home, Self-Care Condition: Stable Prescriptions: New Smz/Tmp Ds Tablet [Bactrim Ds Tablet] 1 udtab PO BID 5 Days #10 tablet Continue Albuterol 2.5 mg/3 ml Neb [Proventil 2.5 mg/3 ml Neb] 1 neb IH QID Naproxen Sodium [Aleve] 220 mg PO DAILY PRN PRN Reason: Pain Famotidine [Pepcid] 20 mg PO DAILY Fluticasone/Umeclidin/Vilanter [Trelegy Ellipta 100-62.5-25] 1 inh PO DAILY Instructions: Urinary Tract Infection, Adult ED Follow up with: MILO MENDOZA MD [Primary Care Provider] -
== END 2022-11-30 15:00 | disposition home or self-care (01) ==
LOC: ED 19:20 → MED SURG 22:56
PROVIDERS: ADMIT Internal Medicine; ATTEND Internal Medicine
DX: N12 Tubulo-interstitial nephritis, not specified as acute or chronic (principal); R51.9 Headache, unspecified; N39.0 Urinary tract infection, site not specified; Z87.09 Personal history of other diseases of the respiratory system; Z85.42 Personal history of malignant neoplasm of other parts of uterus; Z79.899 Other long term (current) drug therapy; Z20.828 Contact with and (suspected) exposure to other viral communicable diseases
CPT/HCPCS: 36000; 36415; 74176; 80048; 80053; 81001; 83735; 84132; 85025; 85027; 87040; 87077; 87086; 87186; 93268; 94640; 94761; 94762; 96365; 96374; 99285; G0378; Q3014; J0696; J1170; J1650; J1885; J2405; J7609; A9270-GY

== ENCOUNTER 2023-08-11 16:27 | Emergency (ER) | payer MEDICARE ==
--- NOTE | 2023-08-11 17:27 | ERPHSYRPT ---
- History of Present Illness Time Seen by Provider: 08/11/23 17:27 Source: patient, family Exam Limitations: no limitations Physician History: She is a morbidly obese 67-year-old white female patient who has a history of hypertension, asthma/COPD and presents with low back pain that has worsened over the last few days. On Sunday prior to arrival, the patient was lifting her mother's wheelchair and twisted and felt a pain in the area. [id number] medication as well as her naproxen did not relieve her pain much at all. Patient denies urinary incontinence. Patient denies bowel incontinence. Patient does not have numbness in her feet. Timing/Duration: day(s) (3), worse (Symptoms worse today) Method of Injury: bending, lifting, twisted Quality: sharp, stabbing Back Pain Location: lumbar spine, paraspinous muscles Back Pain Radiation: buttocks Severity of Pain-Max: moderate Severity of Pain-Current: moderate Modifying Factors: Improves With: movement Associated Symptoms: lower back pain (Lumbar level), muscle spasms (Lumbar level), No urinary incontinence, No loss of bowel control, No numbness in legs/feet, No sensory/motor loss, No tingling in legs/feet Previous symptoms: no prior history Allergies/Adverse Reactions: No Known Drug Allergies Allergy (Verified 11/28/22 19:30) Home Medications: Albuterol 2.5 mg/3 ml Neb [Proventil 2.5 mg/3 ml Neb] 1 neb IH QID 08/10/21 [History] Famotidine [Pepcid] 20 mg PO DAILY 11/28/22 [History] Fluticasone/Umeclidin/Vilanter [Trelegy Ellipta 100-62.5-25] 1 inh PO DAILY 11/28/22 [History] Naproxen Sodium [Aleve] 220 mg PO DAILY PRN 11/28/22 [History] Losartan/Hydrochlorothiazide [Losartan-Hctz 100-25 mg Tab] 1 each PO DAILY 08/11/23 [History] Metoprolol Tartrate 50 mg [Lopressor 50 MG] 50 mg PO DAILY 08/11/23 [History] Hx Tetanus, Diphtheria Vaccination/Date Given: No Hx Influenza Vaccination/Date Given: No Hx Pneumococcal Vaccination/Date Given: No Travel Risk - International Travel Have you traveled outside of the country in past 3 weeks: No - Emerging Infectious Disease Are you exhibiting symptoms associated with any current EIDs: No - Review of Systems Constitutional: No Symptoms Eyes: No Symptoms Ears, Nose, & Throat: No Symptoms Respiratory: No Symptoms Cardiac: No Symptoms Abdominal/Gastrointestinal: No Symptoms Genitourinary Symptoms: No Symptoms Musculoskeletal: Back Pain Skin: No Symptoms Neurological: No Symptoms Psychological: No Symptoms Endocrine: No Symptoms Hematologic/Lymphatic: No Symptoms Immunological/Allergic: No Symptoms All Other Systems: Reviewed and Negative - Past Medical History Pertinent Past Medical History: Yes Neurological History: No Pertinent History ENT History: No Pertinent History Cardiac History: Hypertension Respiratory History: COPD Endocrine Medical History: No Pertinent History Musculoskeletal History: Osteoarthritis GI Medical History: No Pertinent History History: No Pertinent History Psycho-Social History: No Pertinent History Female Reproductive Disorders: Uterine Cancer Other Medical History: kidney stones - Past Surgical History Past Surgical History: Yes Neuro Surgical History: No Pertinent History Cardiac: No Pertinent History Respiratory: No Pertinent History Gastrointestinal: No Pertinent History Genitourinary: No Pertinent History Musculoskeletal: No Pertinent History Female Surgical History: Hysterectomy - Social History Smoking Status: Former smoker How long have you smoked: age 15 Exposure to second hand smoke: Yes Drug Use: none Patient Lives Alone: No - Nursing Vital Signs Nursing Vital Signs: Initial Vital Signs Temperature 97.6 F 08/11/23 17:31 Pulse Rate 77 08/11/23 17:31 Respiratory Rate 18 08/11/23 17:31 Blood Pressure 165/98 08/11/23 17:31 O2 Sat by Pulse Oximetry 99 08/11/23 17:31 Pain Scale Pain Intensity [Left Back] 10 Pain Intensity 6 - Physical Exam General Appearance: mild distress, alert, anxiety, obese Eye Exam: PERRL/EOMI, eyes nml inspection Ears, Nose, Throat Exam: normal ENT inspection, moist mucous membranes Neck Exam: normal inspection, non-tender, supple, full range of motion Respiratory Exam: normal breath sounds, lungs clear, airway intact, No chest tenderness, No respiratory distress Cardiovascular Exam: regular rate/rhythm, normal heart sounds, normal peripheral pulses Gastrointestinal Exam: soft, normal bowel sounds, No tenderness Pelvic Exam: not done Rectal Exam: not done Back Exam: normal inspection, vertebral tenderness (Lumbar level), decreased range of motion, muscle spasm, No CVA tenderness Extremity Exam: normal inspection, normal range of motion, pelvis stable Neurologic Exam: alert, oriented x 3, cooperative, shingle grader II-XII nml as tested Skin Exam: normal color, warm, dry Lymphatic Exam: No adenopathy SpO2 Interpretation: normal O2 Delivery: Room Air - Course Nursing assessment & vital signs reviewed: Yes Ordered Tests: Active Orders 24 hr Category Date Time Status ABDOMEN AND PELVIS W/0 CONTRAS [CT] Stat Exams 08/11/23 18:28 Ordered CULTURE,URINE Stat Lab 08/11/23 20:02 Received UA W/RFX UR CULTURE Stat Lab 08/11/23 20:02 Completed Medication Summary Discontinued Medications Generic Name Dose Route Start Last Admin Trade Name Freq PRN Reason Stop Dose Admin Cephalexin HCl 500 mg 08/11/23 20:42 Cephalexin Mh500 Mg Capsule PO 08/11/23 20:43 STAT ONE Hydromorphone HCl 0.5 mg 08/11/23 18:38 08/11/23 18:44 Hydromorphone 1 Mg/1ml Inj IM 08/11/23 18:39 0.5 mg STAT ONE Administration Hydromorphone HCl Confirm 08/11/23 18:42 Hydromorphone 1 Mg/1ml Inj Administered 08/11/23 18:43 Dose 1 mg .ROUTE .STK-MED ONE Ondansetron HCl 4 mg 08/11/23 18:37 08/11/23 18:45 Zofran 4 Mg/Udtablet Orally Disintegrating PO 08/11/23 18:38 4 mg STAT ONE Administration Ondansetron HCl Confirm 08/11/23 18:41 Zofran 4 Mg/Udtablet Orally Disintegrating Administered 08/11/23 18:42 Dose 4 mg .ROUTE .STK-MED ONE Orphenadrine Citrate 60 mg 08/11/23 18:37 08/11/23 18:44 Orphenadrine Citrate 60 Mg/2 Ml Vial IM 08/11/23 18:38 60 mg STAT ONE Administration Orphenadrine Citrate Confirm 08/11/23 18:41 Orphenadrine Citrate 60 Mg/2 Ml Vial Administered 08/11/23 18:42 Dose 60 mg .ROUTE .STK-MED ONE Lab/Rad Data: Laboratory Results 08/11/23 Range/Units 20:02 Urine Color Yellow (Yellow) Urine Appearance Clear (Clear) Urine pH 5.5 (4.6-8.0) Ur Specific [place] 1.025 (1.005-1.030) Urine Protein 30 (Negative) Urine Glucose (UA) Negative (Negative) mg/dL Urine Ketones Trace A (Negative) Urine Blood Negative (Negative) Urine Nitrite Negative (Negative) Urine Bilirubin Negative (Negative) Urine Urobilinogen 1.0 A (0.2) mg/dL Ur Leukocyte Esterase Small A (Negative) U Hyaline Cast (Auto) NONE SEEN (0-2) /LPF Urine Microscopic RBC 3-5 (0-5) /HPF Urine Microscopic WBC 6-10 A (0-5) /HPF Ur Epithelial Cells Few (None Seen) /HPF Urine Bacteria None Seen (None Seen) /HPF Urine Culture Reflexed YES (NO) - Progress Progress: improved, pain not gone completely, re-examined Progress Note: 08/11/23 19:57 My medical decision making and the assignment of low to moderate complexity of this patient's medical issue today is based on review of the patient's past medical history, review patient medication list, review of patient drug allergy list, history present illness and physical findings on examination. The workup in this patient includes urinalysis, CT scan of the abdomen pelvis, and pain management. Differential diagnosis includes ureterolithiasis, urinary tract infection, intra-abdominal aortic abnormality, spine abnormality, sciatica 08/11/23 20:44 I interpreted the patient's laboratory data results. The patient does have a urinary tract infection. There is no other acute, emergent medical issues based on the laboratory data results. CT scan of the abdomen pelvis was interpreted by the radiologist and I reviewed the impression. There are bilateral nonobstructive renal microlithiasis. There is evidence of diverticulosis without diverticulitis or other acute complications. There is evidence of lumbar spondylosis. The pelvic vasculature is unremarkable. Counseled pt/family regarding: lab results, diagnosis, rad results Medical Desision Making - Independent Historian Additional History obtained from: Family - Diagnostic Testing Radiological Interpretation: Reviewed by me, Teleradiologist Report - Risk of complications The pt has a mod risk of morbidity or mortality based on: Need for prescription drug management - Departure Departure Disposition: Home Clinical Impression: UTI (urinary tract infection), Acute exacerbation of chronic low back pain Condition: Stable Critical Care Time: No Referrals: MILO MENDOZA MD [Primary Care Provider] - Follow up/PCP as directed Additional Instructions: Take your antibiotics and other medication as prescribed. Call your primary care provider on 08/13/2023 to make arrangements for follow-up appointment for further evaluation management. Prescriptions: Oxycodone HCl/Acetaminophen [Percocet 5-325 mg Tablet] 1 each PO Q8H PRN PRN #6 tablet MDD 3 PRN Reason: Moderate To Severe Pain Prednisone 10 mg [Deltasone 10 mg] 10 mg PO TID #12 tablet Cephalexin Mh 500 mg [Keflex 500 mg] 500 mg PO TID #21 cap
[2023-08-11 17:32] VITALS: RESP 18; TEMP 97.6
[2023-08-11] MEDS ORDERED: Norflex 60 MG/2 ML ONE (18:41)
[2023-08-11] MEDS ORDERED: ZOFRAN ODT 4 MG ONE (18:41)
[2023-08-11] MEDS ORDERED: Hydromorphone 1 mg/ml Injection ONE (18:42)
[2023-08-11] MEDS: Norflex 60 MG/2 ML IM ONE (18:44)
[2023-08-11] MEDS: Hydromorphone 1 mg/ml Injection IM ONE (18:44)
[2023-08-11] MEDS: ZOFRAN ODT 4 MG PO ONE (18:45)
[2023-08-11 20:11] VITALS: O2SAT 96
[2023-08-11 20:15] LABS: Appearance Clear (Clear); Bacteria None Seen /HPF (None Seen); Bilirubin Negative (Negative); Blood Negative (Negative); Epithelial Cells Few /HPF (None Seen); Glucose, Urine Negative (Negative); Hyaline Casts NONE SEEN /LPF (0-2); Ketones Trace (Negative); Leukocyte Esterase Small (Negative); Nitrite Negative (Negative); Ph 5.5 (4.6-8.0); Protein,Urine Dip 30 (Negative); Specific Gravity 1.025 (1.005-1.030)
[2023-08-11 20:23] LABS: ADD URINE CULTURE? YES (NO)
[2023-08-11 20:38] VITALS: BP 180/92; PULSE 67
[2023-08-11] MEDS ORDERED: KEFLEX 500 MG ONE (21:20)
[2023-08-11] MEDS ORDERED: PERCOCET TABLET 5/325MG ONE (21:20)
[2023-08-11] MEDS: PERCOCET TABLET 5/325MG PO STA (21:24)
[2023-08-11] MEDS: KEFLEX 500 MG PO ONE (21:24)
--- NOTE | 2023-08-13 08:31 | XRAY ---
CLINICAL HISTORY: Back pain COMPARISON: None. TECHNIQUE: A CT scan of the abdomen and pelvis was performed without IV contrast. Coronal and sagittal reconstructive images were also obtained. "One of the following dose reduction techniques were utilized for this exam: Automated exposure control, adjustment of the mA and/or kV according to patient size, and use of iterative reconstruction." FINDINGS: A scan through the lower chest reveals unremarkable lung bases and heart. Abdomen: The liver is normal in size. Mild steatosis (grade I) and millimetric calcified granuloma in segment VII. The portal vein, intrahepatic biliary radicals, and the bile ducts are normal. The spleen, pancreas, and adrenal glands are unremarkable. The kidneys are unremarkable. They are normal in size and shape. No hydronephrosis. Bilateral non-obstructive renal microlithiasis. A few small hypodense areas in the lower pole of the left kidney, most likely cysts, the largest measuring 17 mm. The gallbladder is normal. No pericholecystic collection or radio-dense calculi in the gall bladder. Diverticulosis in the colon predominantly in the sigmoid. There is no evidence of significant enlargement of the mesenteric or retroperitoneal lymph nodes. Pelvis: The urinary bladder is unremarkable. Uterus absent. The pelvic vasculature is unremarkable. No evidence of pelvic lymphadenopathy. Decreased bone density, moderate signs of lumbar spondylosis, and scoliotic position convex to the right. Grade I anterolisthesis of L4 over L5. IMPRESSION: 1. No acute findings. 2. Mild hepatic steatosis. 3. Bilateral non-obstructive renal microlithiasis. 4. Diverticulosis in the colon without signs of complication. Electronically Signed by: Aneta Limon MD. (08/11/2023 19:47:14 EDT)
== END 2023-08-11 21:38 | disposition home or self-care (01) ==
LOC: ED 16:27
DX: N39.0 Urinary tract infection, site not specified (principal); G89.29 Other chronic pain; M54.50 Low back pain, unspecified; I10 Essential (primary) hypertension; Z79.891 Long term (current) use of opiate analgesic; Z79.52 Long term (current) use of systemic steroids; Z79.899 Other long term (current) drug therapy
CPT/HCPCS: 74176; 81001; 87077; 87086; 87186; 96372; 99284; J1170; J2360; Q0162; A9270-GY

== ENCOUNTER 2023-08-22 16:51 | Emergency (ER) | payer MEDICARE ==
[2023-08-22 17:06] VITALS: TEMP 97
--- NOTE | 2023-08-22 17:15 | ERPHSYRPT ---
- History of Present Illness Time Seen by Provider: 08/22/23 16:59 Historian: patient Exam Limitations: no limitations Patient Subjective Stated Complaint: C/O constant chest pain that started today. States maybe 5-6 hours ago. Patient having trouble describing the pain, states, "it's just pain." Triage Nursing Assessment: Patient is alert and oriented. Skin tone normal. Dried and crusted shingles noted to left side of back wrapping around side to under left breast. The shingles near breast are not crusted, they are still moist and weeping. When asking patient to show where her pain is located, she is indicating the pain to be located in her upper abdomen/lower chest; epigastric area. Skin tone normal. Physician History: For the past 6 hours pt has had constant mid chest pain 9/10 in severity with nausea and shortness of air. Last BM was today without blood. Pt denies vomiting, fever, headache; admits to urinary frequency today. Pt has had shingles for the past 7 days. Aspirin Treatment Today: 81 mg x 4, provided by ED Allergies/Adverse Reactions: prednisone Adverse Reaction (Verified 08/22/23 16:52) Nausea Home Medications: Albuterol 2.5 mg/3 ml Neb [Proventil 2.5 mg/3 ml Neb] 1 vial NEB Q4-6HPRN PRN 08/22/23 [History] Fluticasone/Umeclidin/Vilanter [Trelegy Ellipta 100-62.5-25] 1 puff PO DAILY 08/22/23 [History] Ketorolac Trometh 10 mg Tab [TORAdol 10 MG TABLET] 1 tab PO Q6H PRN PRN 08/22/23 [History] Losartan/Hydrochlorothiazide [Losartan-Hctz 100-25 mg Tab] 1 tab PO DAILY 08/22/23 [History] Metoprolol Succinate 50 mg [Toprol Xl 50 MG] 50 mg PO HS 08/22/23 [History] Hx Tetanus, Diphtheria Vaccination/Date Given: Yes Hx Influenza Vaccination/Date Given: Yes Hx Pneumococcal Vaccination/Date Given: Yes Immunizations Up to Date: Yes Travel Risk - International Travel Have you traveled outside of the country in past 3 weeks: No - Emerging Infectious Disease Are you exhibiting symptoms associated with any current EIDs: No - Review of Systems Constitutional: No Fever Respiratory: Dyspnea Cardiac: Chest Pain Abdominal/Gastrointestinal: Nausea Genitourinary Symptoms: Frequency (today) Skin: Rash (shingles on left side for the past week) Neurological: No Headache - Past Medical History Pertinent Past Medical History: Yes Neurological History: No Pertinent History ENT History: No Pertinent History Cardiac History: Hypertension Respiratory History: COPD Endocrine Medical History: No Pertinent History Musculoskeletal History: Osteoarthritis GI Medical History: No Pertinent History History: No Pertinent History Psycho-Social History: No Pertinent History Female Reproductive Disorders: Uterine Cancer Other Medical History: kidney stones, shingles - Past Surgical History Past Surgical History: Yes Neuro Surgical History: No Pertinent History Cardiac: No Pertinent History Respiratory: No Pertinent History Gastrointestinal: No Pertinent History Genitourinary: No Pertinent History Musculoskeletal: No Pertinent History Female Surgical History: Hysterectomy - Social History Smoking Status: Current every day smoker How long have you smoked: age 15 Exposure to second hand smoke: Yes Drug Use: none Patient Lives Alone: No - Nursing Vital Signs Nursing Vital Signs: Initial Vital Signs Temperature 97 F 08/22/23 16:58 Pulse Rate 70 08/22/23 16:58 Respiratory Rate 19 08/22/23 16:58 Blood Pressure 173/89 08/22/23 16:58 O2 Sat by Pulse Oximetry 97 08/22/23 16:58 Pain Scale Pain Intensity 8 - Physical Exam General Appearance: alert Eye Exam: PERRL/EOMI Ears, Nose, Throat Exam: TMs normal, pharynx normal Neck Exam: normal inspection Respiratory Exam: lungs clear, airway intact Cardiovascular Exam: normal heart sounds Gastrointestinal/Abdomen Exam: normal bowel sounds Back Exam: rash (shingles over mid left side to under left breast(ER Nurse was present during exam)) Neurologic Exam: alert, cooperative SpO2 Interpretation: normal SpO2: 97 O2 Delivery: Room Air - Course Nursing assessment & vital signs reviewed: Yes EKG Interpreted by Me: RATE (72), Sinus Rhythm, NORMAL AXIS, Other (QTc = 447) - CT Exams Chest CT Interpretation: Discussed w/radiologist (Normal PE exam.) Ordered Tests: Active Orders 24 hr Category Date Time Status EKG-ER Only STAT Care 08/22/23 17:15 Active IV Insertion STAT Care 08/22/23 17:15 Active CHEST WITH CONTRAST [CT] Stat Exams 08/22/23 17:18 Taken AMYLASE Stat Lab 08/22/23 17:15 Completed CBC W DIFF Stat Lab 08/22/23 17:15 Completed CMP Stat Lab 08/22/23 17:15 Completed LIPASE Stat Lab 08/22/23 17:15 Completed MAGNESIUM Stat Lab 08/22/23 17:15 Completed TROPONIN Q4H Lab 08/22/23 17:15 Completed TROPONIN Q4H Lab 08/22/23 21:08 Completed TROPONIN Q4H Lab 08/23/23 01:15 Ordered UA W/RFX UR CULTURE Stat Lab 08/22/23 19:10 Completed Medication Summary Discontinued Medications Generic Name Dose Route Start Last Admin Trade Name Freq PRN Reason Stop Dose Admin Hydrocodone Bitart/Acetaminophen 2 tab 08/22/23 17:16 08/22/23 17:27 Hydrocodone/Apap 5/325 1 Tab Tablet PO 08/22/23 17:17 2 tab STAT ONE Administration Hydrocodone Bitart/Acetaminophen Confirm 08/22/23 17:23 Hydrocodone/Apap 5/325 1 Tab Tablet Administered 08/22/23 17:24 Dose 2 tab .ROUTE .STK-MED ONE Hydrocodone Bitart/Acetaminophen 2 tab 08/22/23 22:26 08/22/23 22:29 Hydrocodone/Apap 5/325 1 Tab Tablet PO 08/22/23 22:27 2 tab SENT HOME W/ PATIENT ONE Administration Al Hydrox/Mg Hydrox/Simethicone Confirm 08/22/23 21:38 Mag Hydrox/Al Hydrox/Simeth 30 Ml Udcup Administered 08/22/23 21:39 Dose 30 ml .ROUTE .STK-MED ONE Aspirin 324 mg 08/22/23 17:16 08/22/23 17:26 Aspirin 81 Mg Tab.Chew PO 08/22/23 17:17 324 mg STAT ONE Administration Aspirin Confirm 08/22/23 17:22 Aspirin 81 Mg Tab.Chew Administered 08/22/23 17:23 Dose 324 mg .ROUTE .STK-MED ONE Sodium Chloride 1,000 mls @ 999 mls/hr 08/22/23 17:15 08/22/23 18:34 Sodium Chloride 0.9% 1000 Ml IV 08/22/23 18:15 Infused .Q1H1M STA Infusion Sodium Chloride Confirm 08/22/23 17:23 Sodium Chloride 0.9% 1000 Ml Administered 08/22/23 17:24 Dose 1,000 mls @ ud .ROUTE .STK-MED ONE Magnesium Sulfate/Dextrose 100 mls @ 200 mls/hr 08/22/23 21:05 08/22/23 21:19 Magnesium 1 Gm / 100 Ml D5w IV 08/22/23 21:34 200 mls/hr STAT ONE Administration Magnesium Sulfate/Dextrose Confirm 08/22/23 21:15 Magnesium 1 Gm / 100 Ml D5w Administered 08/22/23 21:16 Dose 100 mls @ ud IV .STK-MED ONE Labetalol HCl 20 mg 08/22/23 20:18 08/22/23 20:48 Labetalol Hcl 20 Mg/4 Ml Disp.Syringe IV 08/22/23 20:19 20 mg STAT ONE Administration Labetalol HCl Confirm 08/22/23 20:46 Labetalol Hcl 20 Mg/4 Ml Disp.Syringe Administered 08/22/23 20:47 Dose 20 mg IV .STK-MED ONE Labetalol HCl Confirm 08/22/23 20:50 Labetalol Hcl 20 Mg/4 Ml Disp.Syringe Administered 08/22/23 20:51 Dose 20 mg IV .STK-MED ONE Labetalol HCl 20 mg 08/22/23 21:19 08/22/23 21:51 Labetalol Hcl 20 Mg/4 Ml Disp.Syringe IV 08/22/23 21:20 Not Given STAT ONE Labetalol HCl Confirm 08/22/23 21:38 Labetalol Hcl 20 Mg/4 Ml Disp.Syringe Administered 08/22/23 21:39 Dose 20 mg IV .STK-MED ONE Lidocaine HCl Confirm 08/22/23 21:38 Lidocaine Hcl 2% Viscous 15 Ml Udcup Administered 08/22/23 21:39 Dose 15 ml .ROUTE .STK-MED ONE Magnesium Hydroxide 45 ml 08/22/23 21:23 08/22/23 21:42 Mag Hydrx/Alum Hyd/Simeth/Lido 45 Ml Bottle PO 08/22/23 21:24 45 ml STAT ONE Administration Morphine Sulfate 2 mg 08/22/23 21:24 08/22/23 21:46 Morphine Sulfate 2 Mg/Ml Inj IV 08/22/23 21:25 2 mg STAT ONE Administration Morphine Sulfate Confirm 08/22/23 21:38 Morphine Sulfate 2 Mg/Ml Inj Administered 08/22/23 21:39 Dose 2 mg .ROUTE .STK-MED ONE Lab/Rad Data: Laboratory Result Diagrams 08/22/23 17:15 08/22/23 17:15 Laboratory Results 08/22/23 08/22/23 08/22/23 Range/Units 21:08 19:10 17:15 WBC (4.0-10.5) x10^3/uL RBC (4.1-5.4) x10^6/uL Hgb (12.0-16.0) g/dL Hct (35-47) % MCV (78-100) fL MCH (26-32) pg MCHC (32-36) g/dL RDW (11.5-14.0) % Plt Count (150-450) x10^3/uL MPV (7.5-11.0) fL Gran % (36.0-66.0) % Immature Gran % (Auto) (0.00-0.4) % Nucleat RBC Rel Count (0.00-0.1) % Eos # (Auto) (0-0.5) x10^3/uL Immature Gran # (Auto) (0.00-0.03) x10^3u/L Absolute Lymphs (auto) (1.0-4.6) x10^3/uL Absolute Monos (auto) (0.0-1.3) x10^3/uL Absolute Nucleated RBC (0.00-0.01) x10^3u/L Lymphocytes % (24.0-44.0) % Monocytes % (0.0-12.0) % Eosinophils % (0.00-5.0) % Basophils % (0.0-0.4) % Absolute Granulocytes (1.4-6.9) x10^3/uL Basophils # (0-0.4) x10^3/uL Sodium 136 (135-145) mmol/L Potassium 3.5 (3.5-5.1) mmol/L Chloride 102 (98-107) mmol/L Carbon Dioxide 24 (22-30) mmol/L Anion Gap 12.9 (5-15) MEQ/L BUN 25 H (7-17) mg/dL Creatinine 0.99 (0.52-1.04) mg/dL Estimated GFR 62.1 ML/MIN Glucose 123 H (74-106) mg/dL Calcium 9.3 (8.4-10.2) mg/dL Magnesium 1.4 L (1.6-2.3) mg/dL Total Bilirubin 0.80 (0.2-1.3) mg/dL AST 24 (14-36) U/L ALT 20 (0-35) U/L Alkaline Phosphatase 100 (38-126) U/L Troponin I < 0.012 < 0.012 (0.000-0.033) ng/mL Serum Total Protein 7.8 (6.3-8.2) g/dL Albumin 4.4 (3.5-5.0) g/dL Amylase 70 (30-110) U/L Lipase 95 (23-300) U/L Urine Color Yellow (Yellow) Urine Appearance Clear (Clear) Urine pH 7.5 (4.6-8.0) Ur Specific [place] 1.020 (1.005-1.030) Urine Protein Negative (Negative) Urine Glucose (UA) Negative (Negative) mg/dL Urine Ketones Negative (Negative) Urine Blood Negative (Negative) Urine Nitrite Negative (Negative) Urine Bilirubin Negative (Negative) Urine Urobilinogen 0.2 (0.2) mg/dL Ur Leukocyte Esterase Trace A (Negative) U Hyaline Cast (Auto) NONE SEEN (0-2) /LPF Urine Microscopic RBC 0-2 (0-5) /HPF Urine Microscopic WBC 3-5 (0-5) /HPF Ur Epithelial Cells None Seen (None Seen) /HPF Urine Bacteria None Seen (None Seen) /HPF Urine Culture Reflexed NO (NO) 08/22/23 Range/Units 17:15 WBC 7.2 (4.0-10.5) x10^3/uL RBC 4.97 (4.1-5.4) x10^6/uL Hgb 14.2 (12.0-16.0) g/dL Hct 42.0 (35-47) % MCV 84.5 (78-100) fL MCH 28.6 (26-32) pg MCHC 33.8 (32-36) g/dL RDW 12.7 (11.5-14.0) % Plt Count 206 (150-450) x10^3/uL MPV 9.8 (7.5-11.0) fL Gran % 71.4 H (36.0-66.0) % Immature Gran % (Auto) 1.0 H (0.00-0.4) % Nucleat RBC Rel Count 0.0 (0.00-0.1) % Eos # (Auto) 0.12 (0-0.5) x10^3/uL Immature Gran # (Auto) 0.07 H (0.00-0.03) x10^3u/L Absolute Lymphs (auto) 1.24 (1.0-4.6) x10^3/uL Absolute Monos (auto) 0.58 (0.0-1.3) x10^3/uL Absolute Nucleated RBC 0.00 (0.00-0.01) x10^3u/L Lymphocytes % 17.2 L (24.0-44.0) % Monocytes % 8.0 (0.0-12.0) % Eosinophils % 1.7 (0.00-5.0) % Basophils % 0.7 (0.0-0.4) % Absolute Granulocytes 5.16 (1.4-6.9) x10^3/uL Basophils # 0.05 (0-0.4) x10^3/uL Sodium (135-145) mmol/L Potassium (3.5-5.1) mmol/L Chloride (98-107) mmol/L Carbon Dioxide (22-30) mmol/L Anion Gap (5-15) MEQ/L BUN (7-17) mg/dL Creatinine (0.52-1.04) mg/dL Estimated GFR ML/MIN Glucose (74-106) mg/dL Calcium (8.4-10.2) mg/dL Magnesium (1.6-2.3) mg/dL Total Bilirubin (0.2-1.3) mg/dL AST (14-36) U/L ALT (0-35) U/L Alkaline Phosphatase (38-126) U/L Troponin I (0.000-0.033) ng/mL Serum Total Protein (6.3-8.2) g/dL Albumin (3.5-5.0) g/dL Amylase (30-110) U/L Lipase (23-300) U/L Urine Color (Yellow) Urine Appearance (Clear) Urine pH (4.6-8.0) Ur Specific [place] (1.005-1.030) Urine Protein (Negative) Urine Glucose (UA) (Negative) mg/dL Urine Ketones (Negative) Urine Blood (Negative) Urine Nitrite (Negative) Urine Bilirubin (Negative) Urine Urobilinogen (0.2) mg/dL Ur Leukocyte Esterase (Negative) U Hyaline Cast (Auto) (0-2) /LPF Urine Microscopic RBC (0-5) /HPF Urine Microscopic WBC (0-5) /HPF Ur Epithelial Cells (None Seen) /HPF Urine Bacteria (None Seen) /HPF Urine Culture Reflexed (NO) - Progress Progress: improved Counseled pt/family regarding: lab results, diagnosis, need for follow-up, rad results Medical Desision Making - Diagnostic Testing Diagnostic test were ordered, analyzed, and reviewed by me: Yes Radiological Interpretation: Discussed w/ radiologist - Departure Departure Disposition: Home Clinical Impression: Chest pain, Herpes zoster, Dyspnea Condition: Stable Critical Care Time: No Referrals: MILO MENDOZA MD [Primary Care Provider] - Follow up/PCP as directed Instructions: Shingles (DC), Chest Pain (DC) Additional Instructions: Follow up with private doctor tomorrow.
[2023-08-22] MEDS ORDERED: BABY ASPIRIN 81 MG CHEW ONE (17:22)
[2023-08-22] MEDS ORDERED: NORCO 5/325 MG ONE ×2 (17:23→22:28)
[2023-08-22] MEDS ORDERED: Sodium Chloride 0.9% 1000 ML 1,000 ML ONE (17:23)
[2023-08-22] MEDS: Sodium Chloride 0.9% 1000 ML 1,000 ML IV STA (17:25)
[2023-08-22] MEDS: BABY ASPIRIN 81 MG CHEW PO ONE (17:26)
[2023-08-22 17:27] LABS: Absolute Neutrophil Ct (ANC) 5.16 x10^3/uL (1.4-6.9); BASOPHIL % 0.7 % (0.0-0.4); Basophil (Absolute #) 0.05 x10^3/uL (0-0.4); Eosinophil % 1.7 % (0.00-5.0); Eosinophil (Absolute #) 0.12 x10^3/uL (0-0.5); Hemoglobin 14.2 g/dL (12.0-16.0); IMMATURE GRAN # 0.07 x10^3u/L (0.00-0.03); Lymphocyte (Absolute #) 1.24 x10^3/uL (1.0-4.6); Lymphocytes % 17.2 % (24.0-44.0); Mean Cell Volume 84.5 fL (78-100); Mean Corpuscular Hemoglobin 28.6 pg (26-32); Mean Corpuscular Hgb Concent. 33.8 g/dL (32-36); Mean Platelet Volume 9.8 fL (7.5-11.0); Monocyte (Absolute #) 0.58 x10^3/uL (0.0-1.3); Neutrophil % 71.4 % (36.0-66.0); Platelet Count 206 x10^3/uL (150-450); Red Blood Count 4.97 x10^6/uL (4.1-5.4); Red Cell Distribution Width 12.7 % (11.5-14.0); White Blood Count 7.2 x10^3/uL (4.0-10.5)
[2023-08-22] MEDS: NORCO 5/325 MG PO ONE ×2 (17:27→22:29)
[2023-08-22 17:49] LABS: ALBUMIN 4.4 g/dL (3.5-5.0); ALKALINE PHOSPHATASE 100 U/L (38-126); AMYLASE 70 U/L (30-110); ANION GAP 12.9 MEQ/L (5-15); BLOOD UREA NITROGEN 25 mg/dL (7-17); CHLORIDE 102 mmol/L (98-107); Calcium 9.3 mg/dL (8.4-10.2); Carbon Dioxide 24 mmol/L (22-30); Creatinine 1 0.99 mg/dL (0.52-1.04); EST GLOMERULAR FILTRATION RATE 62.1 ML/MIN; Glucose 123 mg/dL (74-106); LIPASE 95 U/L (23-300); MAGNESIUM 1.4 mg/dL (1.6-2.3); Potassium 3.5 mmol/L (3.5-5.1); SGOT/AST 24 U/L (14-36); SGPT/ALT 20 U/L (0-35); SODIUM 136 mmol/L (135-145); TROPONIN < 0.012 ng/mL (0.000-0.033); Total Protein 7.8 g/dL (6.3-8.2)
[2023-08-22 19:56] LABS: ADD URINE CULTURE? NO (NO); Appearance Clear (Clear); Bacteria None Seen /HPF (None Seen); Bilirubin Negative (Negative); Blood Negative (Negative); Epithelial Cells None Seen /HPF (None Seen); Glucose, Urine Negative (Negative); Hyaline Casts NONE SEEN /LPF (0-2); Ketones Negative (Negative); Leukocyte Esterase Trace (Negative); Nitrite Negative (Negative); Ph 7.5 (4.6-8.0); Protein,Urine Dip Negative (Negative); RBC 0-2 /HPF (0-5); Urobilinogen 0.2 mg/dL (0.2)
[2023-08-22] MEDS ORDERED: TRANDATE 20 MG/4 ML SYRINGE IV ONE ×3 (20:46→21:38)
[2023-08-22] MEDS: TRANDATE 20 MG/4 ML SYRINGE IV ONE ×2 (20:48→21:51)
[2023-08-22 21:08] VITALS: O2SAT 97
[2023-08-22] MEDS ORDERED: Magnesium 1 Gm / 100 Ml D5W*** 100 ML IV ONE (21:15)
[2023-08-22] MEDS: Magnesium 1 Gm / 100 Ml D5W*** 100 ML IV ONE (21:19)
[2023-08-22] MEDS ORDERED: MAALOX ES 30 ML UNIT DOSE ONE (21:38)
[2023-08-22] MEDS ORDERED: MORPHINE SULFATE 2 MG INJ ONE (21:38)
[2023-08-22] MEDS ORDERED: XYLOCAINE VISCOUS 2% 15 ML CUP ONE (21:38)
[2023-08-22] MEDS: GI COCKTAIL 45 ML (Maalox/Lidocaine) PO ONE (21:42)
[2023-08-22] MEDS: MORPHINE SULFATE 2 MG INJ IV ONE (21:46)
[2023-08-22 22:41] VITALS: BP 170/100; PULSE 67; RESP 19
--- NOTE | 2023-08-23 08:45 | XRAY ---
Indication: Chest pain. Multiple contiguous axial images obtained through the chest using 80 cc Isovue 370 contrast and PE protocol. Comparison: None Clinical opacification pulmonary arteries to include the lobar and segmental branches. No pulmonary embolus. Heart not enlarged. Aorta is normal in course and caliber. Small left hilar calcified nodes. No pathologic mediastinal/hilar lymphadenopathy. Lungs are inflated with minimal biapical fibrosis/scarring. No suspicious pulmonary mass/nodule, infiltrate, or effusion. Bony thorax intact with mild/moderate degenerative changes throughout the spine. Limited upper abdomen demonstrates fatty liver. Impression: 1. Negative pulmonaryembolus. No acute cardiopulmonary abnormalities. 2. Incidental biapical fibrosis/scarring, multilevel degenerative spondylosis, and fatty liver.
== END 2023-08-22 22:42 | disposition home or self-care (01) ==
LOC: ED 16:51
DX: R07.9 Chest pain, unspecified (principal); B02.9 Zoster without complications; R06.00 Dyspnea, unspecified; R11.0 Nausea; R35.0 Frequency of micturition; I10 Essential (primary) hypertension; Z79.899 Other long term (current) drug therapy; Z72.0 Tobacco use
CPT/HCPCS: 36000; 36415; 71260; 80053; 81001; 82150; 83690; 83735; 84484; 85025; 93005; 96360; 96365; 96374; 96375; 99285; J2270; J3475; A9270-GY

== ENCOUNTER 2024-01-22 06:59 | Emergency (ER) | payer MEDICARE ==
--- NOTE | 2024-01-22 07:30 | ERPHSYRPT ---
- History of Present Illness Time Seen by Provider: 01/22/24 07:31 Source: patient Exam Limitations: no limitations Physician History: 68-year-old female with a history of low back pain presents to emergency department for evaluation of right-sided low back pain that started while she was asleep. Patient states the pain started at approximately 4 AM while she was sleeping. Pain is associated with nausea and vomiting. Patient had similar symptoms in the past however involving the contralateral side. No trauma. No hematuria dysuria. Patient denies urinary symptomology. No chest pain or shortness of breath. Patient appears uncomfortable. Symptoms are moderate in intensity. Pain is constant and not necessarily associated with movement. Patient otherwise feels well. She voices no other complaints or concerns at this time. Portions of this note were created with voice recognition technology. There may be grammatical, spelling, punctuation or sound alike errors Timing/Duration: today Severity: moderate Modifying Factors: Improves With: other (Movement exacerbates pain however pain is present at rest as well) Associated Symptoms: nausea, vomiting Allergies/Adverse Reactions: prednisone Adverse Reaction (Verified 01/22/24 07:23) Nausea Home Medications: Albuterol 2.5 mg/3 ml Neb [Proventil 2.5 mg/3 ml Neb] 1 vial NEB Q4-6HPRN PRN 08/22/23 [History] Fluticasone/Umeclidin/Vilanter [Trelegy Ellipta 100-62.5-25] 1 puff PO DAILY 08/22/23 [History] Losartan/Hydrochlorothiazide [Losartan-Hctz 100-25 mg Tab] 1 tab PO DAILY 08/22/23 [History] Metoprolol Succinate 50 mg [Toprol Xl 50 MG] 50 mg PO HS 08/22/23 [History] Tramadol HCl 50 mg [Ultram 50 mg] 1 tab PO Q6HPRN PRN 01/22/24 [History] Hx Tetanus, Diphtheria Vaccination/Date Given: Yes Hx Influenza Vaccination/Date Given: Yes Hx Pneumococcal Vaccination/Date Given: Yes Travel Risk - Emerging Infectious Disease Are you exhibiting symptoms associated with any current EIDs: No - Review of Systems Constitutional: No Symptoms, No Fever, No Chills Eyes: No Symptoms Ears, Nose, & Throat: No Symptoms Respiratory: No Symptoms, No Cough, No Dyspnea Cardiac: No Symptoms, No Chest Pain, No Edema, No Syncope Abdominal/Gastrointestinal: No Symptoms, No Abdominal Pain, No Nausea, No Vomiting, No Diarrhea Genitourinary Symptoms: No Symptoms, No Dysuria Musculoskeletal: No Symptoms, No Back Pain, No Neck Pain Skin: No Symptoms, No Rash Neurological: No Symptoms, No Dizziness, No Focal Weakness, No Sensory Changes Psychological: No Symptoms Endocrine: No Symptoms Hematologic/Lymphatic: No Symptoms Immunological/Allergic: No Symptoms All Other Systems: Reviewed and Negative - Past Medical History Pertinent Past Medical History: Yes Neurological History: No Pertinent History ENT History: No Pertinent History Cardiac History: Hypertension Respiratory History: COPD Endocrine Medical History: No Pertinent History Musculoskeletal History: Osteoarthritis GI Medical History: No Pertinent History History: No Pertinent History Psycho-Social History: No Pertinent History Female Reproductive Disorders: Uterine Cancer Other Medical History: kidney stones, shingles - Past Surgical History Past Surgical History: Yes Neuro Surgical History: No Pertinent History Cardiac: No Pertinent History Respiratory: No Pertinent History Gastrointestinal: No Pertinent History Genitourinary: No Pertinent History Musculoskeletal: No Pertinent History Female Surgical History: Hysterectomy - Social History Smoking Status: Current every day smoker How long have you smoked: age 15 Exposure to second hand smoke: Yes Drug Use: none Patient Lives Alone: No - Social Determinants of Health Will the patient participate in the screening: Yes Do you worry about a steady place to live?: No In the past 12 months,have you had to go without utilities?: No Transportation Issues: No Has anyone in your support network made you feel unsafe?: No Have you or anyone in your house had to go without enough: No - Nursing Vital Signs Nursing Vital Signs: Initial Vital Signs Temperature 97.9 F 01/22/24 07:29 Pulse Rate 61 01/22/24 07:29 Respiratory Rate 20 01/22/24 07:29 Blood Pressure 219/91 01/22/24 07:29 O2 Sat by Pulse Oximetry 97 01/22/24 07:29 Pain Scale Pain Intensity 4 - Physical Exam General Appearance: no apparent distress, alert Eye Exam: PERRL/EOMI, eyes nml inspection Ears, Nose, Throat Exam: normal ENT inspection, moist mucous membranes Neck Exam: normal inspection, non-tender, supple, full range of motion Respiratory Exam: normal breath sounds, lungs clear, No respiratory distress Cardiovascular Exam: regular rate/rhythm, normal heart sounds, normal peripheral pulses Gastrointestinal/Abdomen Exam: soft, normal bowel sounds, No tenderness, No mass Back Exam: normal inspection, normal range of motion, other (Pain at right lower back), No CVA tenderness, No vertebral tenderness Extremity Exam: normal inspection, normal range of motion, pelvis stable Neurologic Exam: alert, oriented x 3, cooperative, normal mood/affect, nml cerebellar function, nml station & gait, sensation nml, No motor deficits Skin Exam: normal color, warm, dry, No rash Lymphatic Exam: No adenopathy SpO2 Interpretation: normal SpO2: 97 O2 Delivery: Room Air - Course Nursing assessment & vital signs reviewed: Yes - CT Exams Abdomen/Pelvis CT Interpretation: Tele-radiologist Report (Left lower lobe calcified granuloma, bilateral nephrolithiasis, left renal cyst, fatty liver, diverticulosis, atherosclerotic disease, grade 1 L4 and L5 listhesis) Ordered Tests: Active Orders 24 hr Category Date Time Status 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 STAT Care 01/22/24 07:26 Active IV Insertion STAT Care 01/22/24 07:24 Active Pulse Oximetry (ED) STAT Care 01/22/24 07:24 Active ABDOMEN AND PELVIS W/0 CONTRAS [CT] Stat Exams 01/22/24 07:30 Completed RECONSTRUCTION [CT] Stat Exams 01/22/24 07:35 Completed CBC W DIFF Stat Lab 01/22/24 07:30 Completed CMP Stat Lab 01/22/24 07:30 Completed CULTURE,URINE Stat Lab 01/22/24 07:36 Received TROPONIN Q4H Lab 01/22/24 07:30 Completed TROPONIN Q4H Lab 01/22/24 11:30 Ordered TROPONIN Q4H Lab 01/22/24 15:30 Ordered UA W/RFX UR CULTURE Stat Lab 01/22/24 07:36 Completed Medication Summary Discontinued Medications Generic Name Dose Route Start Last Admin Trade Name Freq PRN Reason Stop Dose Admin Ketorolac Tromethamine 60 mg 01/22/24 09:38 Ketorolac Tromethamine 30 Mg/Ml Inj IM 01/22/24 09:39 STAT ONE Morphine Sulfate 4 mg 01/22/24 07:24 01/22/24 07:39 Morphine Sulfate 4 Mg/Ml Injection IV 01/22/24 07:25 4 mg STAT ONE Administration Morphine Sulfate Confirm 01/22/24 07:38 Morphine Sulfate 4 Mg/Ml Injection Administered 01/22/24 07:39 Dose 4 mg .ROUTE .STK-MED ONE Ondansetron HCl 4 mg 01/22/24 07:28 01/22/24 07:39 Ondansetron Hcl 4 Mg/2 Ml Vial IV 01/22/24 07:29 4 mg STAT ONE Administration Ondansetron HCl Confirm 01/22/24 07:38 Ondansetron Hcl 4 Mg/2 Ml Vial Administered 01/22/24 07:39 Dose 4 mg .ROUTE .STK-MED ONE Lab/Rad Data: Laboratory Result Diagrams 01/22/24 07:30 01/22/24 07:30 Laboratory Results 01/22/24 01/22/24 01/22/24 Range/Units 07:36 07:30 07:30 WBC (3.98-10.04) x10^3/uL RBC (3.93-5.22) x10^6/uL Hgb (11.2-15.7) g/dL Hct (34.1-44.9) % MCV (79.4-94.8) fL MCH (25.6-32.2) pg MCHC (32.2-35.5) g/dL RDW (11.7-14.4) % Plt Count (182-369) x10^3/uL MPV (9.4-12.3) fL Gran % (34.0-71.1) % Immature Gran % (Auto) (0.001-0.429) % Nucleat RBC Rel Count (0.00-0.2) % Eos # (Auto) (0.04-0.36) x10^3/uL Immature Gran # (Auto) (0.001-0.031) x10^3u/L Absolute Lymphs (auto) (1.18-3.74) x10^3/uL Absolute Monos (auto) (0.24-0.86) x10^3/uL Absolute Nucleated RBC (0.00-0.012) x10^3u/L Lymphocytes % (19.3-51.7) % Monocytes % (4.7-12.5) % Eosinophils % (0.7-5.8) % Basophils % (0.1-1.2) % Absolute Granulocytes (1.56-6.13) x10^3/uL Basophils # (0.01-0.08) x10^3/uL Sodium 138 (135-145) mmol/L Potassium 4.0 (3.5-5.1) mmol/L Chloride 104 (98-107) mmol/L Carbon Dioxide 25 (22-30) mmol/L Anion Gap 13.4 (5-15) MEQ/L BUN 13 (7-17) mg/dL Creatinine 0.95 (0.52-1.04) mg/dL Estimated GFR 64.9 ML/MIN Glucose 128 H (74-106) mg/dL Calcium 9.7 (8.4-10.2) mg/dL Total Bilirubin 0.80 (0.2-1.3) mg/dL AST 30 (14-36) U/L ALT 26 (0-35) U/L Alkaline Phosphatase 111 (38-126) U/L Troponin I < 0.012 (0.000-0.033) ng/mL Serum Total Protein 7.5 (6.3-8.2) g/dL Albumin 4.4 (3.5-5.0) g/dL Urine Color Yellow (Yellow) Urine Appearance Clear (Clear) Urine pH 7.0 (4.6-8.0) Ur Specific [place] 1.020 (1.005-1.030) Urine Protein Trace A (Negative) Urine Glucose (UA) Negative (Negative) mg/dL Urine Ketones Negative (Negative) Urine Blood Negative (Negative) Urine Nitrite Negative (Negative) Urine Bilirubin Negative (Negative) Urine Urobilinogen 1.0 A (0.2) mg/dL Ur Leukocyte Esterase Trace A (Negative) U Hyaline Cast (Auto) NONE SEEN (0-2) /LPF Urine Microscopic RBC 0-2 (0-5) /HPF Urine Microscopic WBC 3-5 (0-5) /HPF Ur Epithelial Cells Few (None Seen) /HPF Urine Bacteria None Seen (None Seen) /HPF Urine Culture Reflexed YES (NO) 01/22/24 Range/Units 07:30 WBC 6.0 (3.98-10.04) x10^3/uL RBC 5.08 (3.93-5.22) x10^6/uL Hgb 14.4 (11.2-15.7) g/dL Hct 43.8 (34.1-44.9) % MCV 86.2 (79.4-94.8) fL MCH 28.3 (25.6-32.2) pg MCHC 32.9 (32.2-35.5) g/dL RDW 13.0 (11.7-14.4) % Plt Count 209 (182-369) x10^3/uL MPV 9.0 L (9.4-12.3) fL Gran % 77.3 H (34.0-71.1) % Immature Gran % (Auto) 1.0 H (0.001-0.429) % Nucleat RBC Rel Count 0.0 (0.00-0.2) % Eos # (Auto) 0.07 (0.04-0.36) x10^3/uL Immature Gran # (Auto) 0.06 H (0.001-0.031) x10^3u/L Absolute Lymphs (auto) 0.80 L (1.18-3.74) x10^3/uL Absolute Monos (auto) 0.40 (0.24-0.86) x10^3/uL Absolute Nucleated RBC 0.00 (0.00-0.012) x10^3u/L Lymphocytes % 13.2 L (19.3-51.7) % Monocytes % 6.6 (4.7-12.5) % Eosinophils % 1.2 (0.7-5.8) % Basophils % 0.7 (0.1-1.2) % Absolute Granulocytes 4.67 (1.56-6.13) x10^3/uL Basophils # 0.04 (0.01-0.08) x10^3/uL Sodium (135-145) mmol/L Potassium (3.5-5.1) mmol/L Chloride (98-107) mmol/L Carbon Dioxide (22-30) mmol/L Anion Gap (5-15) MEQ/L BUN (7-17) mg/dL Creatinine (0.52-1.04) mg/dL Estimated GFR ML/MIN Glucose (74-106) mg/dL Calcium (8.4-10.2) mg/dL Total Bilirubin (0.2-1.3) mg/dL AST (14-36) U/L ALT (0-35) U/L Alkaline Phosphatase (38-126) U/L Troponin I (0.000-0.033) ng/mL Serum Total Protein (6.3-8.2) g/dL Albumin (3.5-5.0) g/dL Urine Color (Yellow) Urine Appearance (Clear) Urine pH (4.6-8.0) Ur Specific [place] (1.005-1.030) Urine Protein (Negative) Urine Glucose (UA) (Negative) mg/dL Urine Ketones (Negative) Urine Blood (Negative) Urine Nitrite (Negative) Urine Bilirubin (Negative) Urine Urobilinogen (0.2) mg/dL Ur Leukocyte Esterase (Negative) U Hyaline Cast (Auto) (0-2) /LPF Urine Microscopic RBC (0-5) /HPF Urine Microscopic WBC (0-5) /HPF Ur Epithelial Cells (None Seen) /HPF Urine Bacteria (None Seen) /HPF Urine Culture Reflexed (NO) - Progress Progress: improved Progress Note: 68-year-old female presents to emergency department for evaluation of low back pain. Physical exam reveals some tenderness at the right lower flank back area. Urinalysis negative for UTI. Laboratory workup essentially nonremarkable. CT abdomen pelvis negative for acute pathology. CT lumbar spine shows significant degenerative disease. Upon arrival patient had significant back pain with nausea. Patient received morphine and Zofran. Back pain significantly improved. Patient then received a dose of Toradol. Patient states he is ready for discharge. Patient advised to follow-up with Dr. Kirk Garnica orthopedic spine doctor in [place]. They agreed to do so if symptoms continue. Patient states he is ready for discharge. at bedside. They voiced no other complaints or concerns at this time. Portions of this note were created with voice recognition technology. There may be grammatical, spelling, punctuation or sound alike errors Complexity of problem addressed is moderate acute complicated. No critical care time. Complex of data reviewed and analyzed is moderate. Test ordered chest reviewed results analyzed and correlated clinically with history and physical exam. Risk of complication and or risk of morbidity/mortality of patient management is moderate. A prescription for Toradol forwarded to patient's pharmacy. Vital stable. Time spent to discharge patient approximately 15 minutes. Plan of care established for shared decision making. No social determinants of health present to impede follow-up Patient not referred to the orthopedic clinic as they do not manage spinal condi tions Portions of this note were created with voice recognition technology. There may be grammatical, spelling, punctuation or sound alike errors 01/22/24 09:40 01/22/24 09:43 Counseled pt/family regarding: lab results, diagnosis, rad results - Departure Departure Disposition: Home Clinical Impression: Back pain, Calcified granuloma of lung, Bilateral nephrolithiasis, Renal cyst, left, Fatty liver, Diverticulosis, Atherosclerotic disease, Grade 1 listhesis L4-L5, Spondylosis Condition: Stable Critical Care Time: No Referrals: MILO MENDOZA MD [Primary Care Provider] - Follow up/PCP as directed HALLIE GARNICA [NON-STAFF PHY W/O PRIVILEGES] - Follow up/PCP as directed Additional Instructions: Discharge/Care Plan ANA [facility] was seen on 01/22/24 in the Emergency Room. The patient was counseled regarding Diagnosis,Lab results, Imaging studies, need for follow up and when to return to the Emergency Room. Prescriptions given: Discharge Note I have spoken with the patient and/or caregivers. I have explained the patient's condition, diagnosis and treatment plan based on the information available to me at this time. I have answered the patient's and/or caregiver's questions and addressed any concerns. The patient and/or caregivers have as good understanding of the patient's diagnosis, condition and treatment plan as can be expected at this point. The vital signs have been stable. The patient's condition is stable and appropriate for discharge from the emergency department. The patient will pursue further outpatient evaluation with the primary care phys ician or other designated or consulting physician as outlined in the discharge instructions. The patient and/or caregivers are agreeable to this plan of care and follow-up instructions have been explained in detail. The patient and/or caregivers have received these instruction. The patient/and or caregivers are aware that any significant change in condition or worsening of symptoms should prompt an immediate return to this or the closest emergency department or call 911. Prescriptions: Ketorolac Trometh 10 mg Tab [TORAdol 10 MG TABLET] 10 mg PO TID 5 Days #15 tablet
[2024-01-22 07:36] VITALS: TEMP 97.9
[2024-01-22] MEDS ORDERED: Zofran 4 MG/2 ML VIAL ONE (07:38)
[2024-01-22] MEDS ORDERED: MORPHINE SULFATE 4 MG INJ ONE (07:38)
[2024-01-22] MEDS: MORPHINE SULFATE 4 MG INJ IV ONE (07:39)
[2024-01-22] MEDS: Zofran 4 MG/2 ML VIAL IV ONE (07:39)
[2024-01-22 07:40] LABS: Absolute Neutrophil Ct (ANC) 4.67 x10^3/uL (1.56-6.13); BASOPHIL % 0.7 % (0.1-1.2); Basophil (Absolute #) 0.04 x10^3/uL (0.01-0.08); Eosinophil % 1.2 % (0.7-5.8); Eosinophil (Absolute #) 0.07 x10^3/uL (0.04-0.36); Hematocrit 43.8 % (34.1-44.9); Hemoglobin 14.4 g/dL (11.2-15.7); IMMATURE GRAN # 0.06 x10^3u/L (0.001-0.031); Lymphocytes % 13.2 % (19.3-51.7); Mean Cell Volume 86.2 fL (79.4-94.8); Mean Corpuscular Hemoglobin 28.3 pg (25.6-32.2); Mean Corpuscular Hgb Concent. 32.9 g/dL (32.2-35.5); Monocytes % 6.6 % (4.7-12.5); Neutrophil % 77.3 % (34.0-71.1); Platelet Count 209 x10^3/uL (182-369); Red Blood Count 5.08 x10^6/uL (3.93-5.22)
[2024-01-22 07:45] LABS: Appearance Clear (Clear); Bacteria None Seen /HPF (None Seen); Bilirubin Negative (Negative); Blood Negative (Negative); Epithelial Cells Few /HPF (None Seen); Glucose, Urine Negative (Negative); Hyaline Casts NONE SEEN /LPF (0-2); Ketones Negative (Negative); Leukocyte Esterase Trace (Negative); Nitrite Negative (Negative); Protein,Urine Dip Trace (Negative); RBC 0-2 /HPF (0-5)
[2024-01-22 07:53] LABS: ALBUMIN 4.4 g/dL (3.5-5.0); ANION GAP 13.4 MEQ/L (5-15); BILIRUBIN,TOTAL 0.8 mg/dL (0.2-1.3); Calcium 9.7 mg/dL (8.4-10.2); Creatinine 1 0.95 mg/dL (0.52-1.04); EST GLOMERULAR FILTRATION RATE 64.9 ML/MIN; Total Protein 7.5 g/dL (6.3-8.2)
[2024-01-22 08:21] VITALS: RESP 17
--- NOTE | 2024-01-22 09:24 | XRAY ---
Indication: Right flank pain. History kidney stone. Multiple contiguous axial images obtained through the abdomen and pelvis without contrast using renal stone protocol. Comparison: August 11, 2023 Lung bases clear again with incidental small left lower lobe calcified granuloma. Heart not enlarged. Stable nonobstructing 2 left and 1 right punctate renal calculi. Also stable small left lower renal exophytic cyst. No new renal calculus or evidence for obstructive uropathy in either system. Noncontrasted stomach and bowel loops appear nonobstructed again with normal appendix. Stable mild descending and sigmoid diverticulosis without diverticulitis, mild diffuse fatty liver, and hysterectomy. No free fluid/air. Remaining liver, gallbladder, pancreas, spleen, adrenal glands, kidneys, ureters, and bladder are unremarkable for noncontrast exam. Stable minimal aortoiliac calcifications without AAA. Osseous structures intact again with osteopenia, minimal dextroscoliosis, mild/moderate multilevel thoracolumbar degenerative spondylosis, and minimal grade 1 listhesis L4 on L5. Impression: 1. Stable nonobstructing bilateral renal punctate calculi and small left renal cyst. 2. Again chronic findings including colonic diverticulosis, fatty liver, arteriosclerotic disease, old granulomatous disease, osteopenia, minimal dextroscoliosis, multilevel degenerative spondylosis, and grade 1 listhesis L4 on L5. 3. No new/acute findings on this noncontrast exam.
--- NOTE | 2024-01-22 09:24 | XRAY ---
Indication: Right flank pain. History kidney stone. Sagittal, coronal, and axial reformatted images lumbar spine obtained using raw data from same day CT abdomen/pelvis exam. Comparison: CT abdomen/pelvis August 11, 2023 Osseous structures intact again with osteopenia, minimal dextroscoliosis, mild/moderate multilevel thoracolumbar degenerative spondylosis, and minimal grade 1 listhesis L4 on L5. No acute fracture, suspicious bony lesions, or spinal canal stenosis. Impression: Again osteopenia, minimal dextroscoliosis, multilevel degenerative spondylosis, and grade 1 listhesis L4 on L5. No new/acute findings.
[2024-01-22] MEDS ORDERED: TORAdol 30 mg Injection ONE (09:42)
[2024-01-22] MEDS: TORAdol 30 mg Injection IM ONE (09:43)
[2024-01-22] MEDS: TORAdol 30 mg Injection IV ONE (09:43)
[2024-01-22 09:44] VITALS: O2SAT 97
[2024-01-22 09:51] VITALS: BP 196/86; PULSE 57
== END 2024-01-22 10:05 | disposition home or self-care (01) ==
LOC: ED 06:59
DX: M54.50 Low back pain, unspecified (principal); J98.4 Other disorders of lung; N20.0 Calculus of kidney; N28.1 Cyst of kidney, acquired; K76.0 Fatty (change of) liver, not elsewhere classified; K57.90 Diverticulosis of intestine, part unspecified, without perforation or abscess without bleeding; I70.90 Unspecified atherosclerosis; M43.16 Spondylolisthesis, lumbar region; M47.816 Spondylosis without myelopathy or radiculopathy, lumbar region; R11.2 Nausea with vomiting, unspecified; I10 Essential (primary) hypertension; Z79.891 Long term (current) use of opiate analgesic; Z79.899 Other long term (current) drug therapy; Z72.0 Tobacco use
CPT/HCPCS: 36000; 36415; 74176; 76376; 80053; 81001; 84484; 85025; 87086; 93041; 94760; 96374; 96375; 99284; J1885; J2270; J2405